=== PATIENT | female | born 1965 | race Caucasian/White ===

== ENCOUNTER → 2020-12-31 | Day surgery (SDC) | payer BC ==
--- NOTE | 2020-12-31 12:48 | RAD REPORT ---
EXAM DESCRIPTION: US - Guided FNA Non Breast - 12/31/2020 11:19 am CLINICAL HISTORY: Thyroid nodule ICD E04.1 TECHNIQUE: Risks, benefits and alternatives of procedure explained to the patient and informed conse nt obtained. The patient was anxious throughout the examination and had some difficulty in not taking deep respira tions and not swallowing during the examination. Skin and subcutaneous tissues anesthetized with lidocaine. Under sonographic guidance, five 25 gauge needle passes were obtained into the 16 millimeter spongifo rm nodule within the left lobe of the thyroid gland. Under sonographic guidance five 25 gauge needle passes were obtained into the dominant nodule within the right lobe of the thyroid gland which is mostly isoechoic. Specimens given to pathology. Patient experienced no immediate complication IMPRESSION: Fine-needle aspirations of a dominant nodule within the right and left lobes of the thyr oid gland
--- NOTE | 2021-01-01 10:23 | RAD REPORT ---
EXAM DESCRIPTION: US - FINE NEEDLE ASPIRATION 2ND LES - 12/31/2020 11:28 am CLINICAL HISTORY: Thyroid nodule ICD E04.1 TECHNIQUE: Risks, benefits and alternatives of procedure explained to the patient and informed conse nt obtained. The patient was anxious throughout the examination and had some difficulty in not taking deep respira tions and not swallowing during the examination. Skin and subcutaneous tissues anesthetized with lidocaine. Under sonographic guidance, five 25 gauge needle passes were obtained into the 16 millimeter spongifo rm nodule within the left lobe of the thyroid gland. Under sonographic guidance five 25 gauge needle passes were obtained into the dominant nodule within the right lobe of the thyroid gland which is mostly isoechoic. Specimens given to pathology. Patient experienced no immediate complication IMPRESSION: Fine-needle aspirations of a dominant nodule within the right and left lobes of the thyr oid gland
== END ==
LOC: FNA 10:00
PROVIDERS: ATTEND Nurse Practitioner Family
DX: E04.1 Nontoxic single thyroid nodule (principal)
CPT/HCPCS: 10006; 88162

== ENCOUNTER 2021-10-31 12:22 | Emergency (ER) | payer BC ==
--- OUTSIDE RECORDS SUMMARY | 2021-10-31 12:28 | XMS REPORT | Clinical Summary ---
:1965 Author Organization [facility] MD Gray [facility] Address [address] [place] [address] Care Team Providers Name Role Phone MD Jahaira Unavailable MD Tyra Primary Care Provider Allergies Active Allergy Reactions Severity Noted Date Comments Latex, Natural Rubber Shortness Of Breath High 05/17/2021 Sulfa (Sulfonamide Antibiotics) Rash Low Medications Medication Sig Dispensed Refills Start Date End Date Status cholecalciferol, Take 5,000 Units 0 Active vitamin D3, (VITAMIN by mouth daily. D3) 5,000 units tab tablet ascorbic acid, Take 1,000 mg by 0 Active vitamin C, (vitamin mouth daily. C) 1000 mg tablet omega-3 fatty Take by mouth 0 Ac tive acids/fish oil (fish daily. oil-omega-3 fatty acids) 300-1,000 mg capsule multivitamin tab Take by mouth 0 Active tablet daily. ZINC ORAL Take by mouth 0 Active daily. KRILL OIL ORAL Take by mouth 0 A ctive daily. lutein 20 mg tab Take by mouth 0 Active daily. glucosamine/chondr Take by mouth 0 Active high A sod (OSTEO daily. BI-FLEX ORAL) UNABLE TO FIND Take 1,200 mcg by 0 Active mouth daily. B12 liquid alendronate Take 1 tablet (70 12 tablet 4 05/18/2021 2 Active (FOSAMAX) 70 mg mg) by mouth every tabletIndications: 7 days. Take with Osteoporosis water on empty stomach in morning, stay upright at least 60 minutes before eating. polyethylene Okay to substitute 4000 mL 0 07/11/2021 Active glycol-electrolytes for Nulytley, (NULYTELY) 420 g Golytley, Colytley solutionIndications: or generic Colonoscopy planned equivalent.Use as directed by ordering provider. 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 06/27/2021 Overview: Added automatically from request for lena faust [id number] Neutropenia 05/18/2021 Multinodular goiter 05/16/2021 Osteoporosis 05/16/2021 Hyperparathyroidism 05/16/2021 Protein electrophoresis abnormal 05/16/2021 Encounters Date Type Specialty Care Team Description 07/21/2021 Anesthesia Event Endoscopy Floyd Diaz MD 07/21/2021 Surgery Endoscopy Kendrick Mary DIAGNOSTIC UP PER MD Jesse GASTROINTESTINA L ENDOSCOPY 07/21/2021 Hospital Encounter Endoscopy Kendrick Mary Chronic iron MD Jesse deficiency anem ia secondary to bl ood loss 07/21/2021 Travel 07/20/2021 Anesthesia Event Anesthesiology Chelly Uribe RN 07/20/2021 POEM Appointments Anesthesiology 07/20/2021 Clinical Support Infectious Diseases Agriam, Susp ected COVID-19 Nadine Chris RN (Primary Dx) 07/20/2021 Travel 07/11/2021 Orders Only Endoscopy Maryann March, Colonoscopy dorothy VASQUEZ (Primary Dx) 06/27/2021 Prep for Surgery Endoscopy Renita Bernard, Chronic i alicja WATER CHEMIST deficiency anem ia secondary to bl ood loss (Primary D x) 06/27/2021 Orders Only Hematology Jo, Chronic iron MD Duong deficiency anem ia secondary to bl ood loss (Primary D x) 06/27/2021 Telephone Hematology Duong Osorio MD 06/13/2021 Hospital Encounter Lab Jo Protein e lectrophoresis abnormal; MD Duong Neutropenia, no t otherwise specified 06/13/2021 Office Visit Hematology Jo Protein electro phoresis abnormal; MD Duong Neutropenia, no t otherwise specified 06/13/2021 Travel 05/26/2021 Ancillary Radiology Raven Mary, Cancer Procedure 05/26/2021 Ancillary Radiology Raven Mary, Cancer Procedure 05/26/2021 Ancillary Radiology Raven Mary, Cancer Procedure 05/26/2021 Ancillary Radiology Raven Mary, Cancer Procedure 05/20/2021 Lab Requisition Sid Mishra MD Witson, Anne S., MD 05/18/2021 Ancillary Radiology Peguero, Benign neoplasm of Procedure ABIGAIL Alonso thyroid gland 05/18/2021 Travel 05/17/2021 Ancillary Radiology Raven Mary, Cancer Procedure 05/17/2021 Ancillary Radiology Raven Mary, Cancer Procedure 05/17/2021 Ancillary Radiology Raven Mary, Cancer Procedure 05/17/2021 Hospital Encounter Lab Peguero, Benign ne oplasm of ABIGAIL lAonso thyroid gland 05/17/2021 Office Visit Endocrinology Raven Mary, Multinodular g oiter (Primary Dx); Hyperparathyroi dism, not otherwise specified; Osteoporosis; Protein electro phoresis abnormal; Hypercalciuria; Neutropenia, no t otherwise specified 05/17/2021 NPR Patient Access Raven Mary, Services 05/17/2021 Travel 05/12/2021 Orders Only Endocrinology Marielena, Benign neoplas m of ABIGAIL Alonso thyroid gland ( Primary Dx) after 10/31/2020 Surgical History Surgery Date Site/Laterality Comments COLONOSCOPY Fall 2013 Routine at age 3 0 +/- HERNIA REPAIR 2012 +/- [facility] HIP ARTHROPLASTY Left [facility] Triplett 2019, Mendez Right 2020 SINUS SURGERY ID ESOPHAGOGASTRODUODENOSCOPY 07/21/2021 Esophagus/N/A Pr ocedure: DIAGNOSTIC TRANSORAL DIAGNOSTIC UPPER GASTR OINTESTINAL ENDOSCOPY; Surg soila: Kendrick davies MD; Location: MAIN ENDOSCOPY; Serv ice: GASTROENTEROLOGY ID COLONOSCOPY FLX DX W/COLLJ SPEC 07/21/2021 N/A Procedure: DIAGNOSTIC WHEN PFRMD FLEXIBLE COLONOS COPY PROXIMAL TO SPLE MATTIE FLEXURE; Surgeo n: Kendrick davies MD; Location: MAIN ENDOSCOPY; Serv ice: GASTROENTEROLOGY Medical History Medical History Date Comments Fracture of pelvis Fatty liver 2016+/- [facility] Dr. Patty salinas - cleared Cleared by her Polyp of colon March 1999 +/- Nasal polyp surgery removal w/impacted sinuses Osteoporosis March 2021 Osteoporosis and Ost eopenia Arthritis March 2021 Showed up in x-rays Scoliosis 1973 +/- Was advised that it was minor curvature Basal cell carcinoma of skin Summer 2014 +/- [facility] - Mohs Surgery left side of head above/behind ear Asthma Family History Medical History Relation Name Comments Cancer Father Eddie Draper from Gallbl adder Cancer Relation Name Status Comments Father Eddie Draper Social History Tobacco Use Types Packs/Day Years Used Date Never Smoker 0 0 Smokeless Tobacco: Never Used Comments: Never touched it Alcohol Use Standard Drinks/Week Comments Yes 2 (1 standard drink = 0.6 oz pure alcoho l) Occasional Use Alcohol Habits Answer Date Recorded How often do you have a drink containing alcohol? Not asked How many drinks containing alcohol do you have on a Not aske d typical day when you are drinking? How often do you have six or more drinks on one Not asked occasion? Comment: Occasional Use 05/17/2021 Sex Assigned at Date Recorded Female 05/12/2021 7:35 PM CDT Job Start Date Occupation Industry Not on file Not on file Not on file Travel History Travel Start Travel End [place] 04/22/2021 04/29/2021 Obstetrics History Last Filed Vital Signs Vital Sign Reading Time Taken Comments Blood Pressure 117/71 07/21/2021 1:30 PM CDT Pulse 73 07/21/2021 1:30 PM CDT Temperature 36.6 C (97.9 F) 07/21/2021 11:50 AM CDT Respiratory Rate 15 07/21/2021 1:30 PM CDT Oxygen Saturation 99% 07/21/2021 1:30 PM CDT Inhaled Oxygen Concentration - - Weight 68 kg (149 lb 14.6 oz) 07/21/2021 11:50 AM CDT Height 172.8 cm (5' 8.03") 06/13/2021 7:46 AM CDT Body Mass Index 22.77 06/13/2021 7:46 AM CDT Plan of Treatment Date Type Specialty Care Team Description 11/18/2021 Lab Lab Jo Ann Robertson FNP [address] [place], [place] [address] (Wo rk) 11/18/2021 Ancillary Procedure Radiology Griffin Robertson FNP [address] [place], [place] [address] (Wo rk) 12/01/2021 Office Visit Endocrinology Raven Mary MD [address] [place], [place] [address] (Wo rk) Health Maintenance Due Date Last Done Comments COVID-19 Vaccination (1) 1968 Implants Implanted Type Area Supervisor Microwave Device Shelf Model / Identifier Expiration Serial / Date Lot Hip Replacement Metalware Bilatera l: Hip Procedures Procedure Name Priority Date/Time Associated Diagnosis Comme nts PATHOLOGY BIOPSY Routine 07/21/2021 12:32 Chronic iron Results for INTERPRETATION PM CDT deficiency anemia this pro cedure secondary to blood are in th e loss results section. ENDOSCOPY NOTE RESULTS 07/21/2021 12:13 R esults for PM CDT this procedure are in the results section. DIAGNOSTIC FLEXIBLE 07/21/2021 12:11 Chronic iron COLONOSCOPY PROXIMAL TO PM CDT deficiency anemia SPLENIC FLEXURE secondary to blood loss DIAGNOSTIC UPPER 07/21/2021 12:11 Chronic iron GASTROINTESTINAL PM CDT deficiency anemia ENDOSCOPY secondary to blood loss COVID-19 Routine 07/20/2021 10:12 Suspected COVID-19 Resul ts for (SARS-COV-2) PCR AM CDT this proced ure ASYMPTOMATIC are in the results section. HOMOCYSTEINE TOTAL STAT 06/13/2021 10:49 Resul ts for AM CDT this procedure are in the results section. .DR. KOHLI PROT ELEC PATH Routine 06/13/2021 10:07 Results for REVIEW AM CDT this procedure are in the results section. FREE KAPPA/FREE LAMBDA Routine 06/13/2021 10:07 R esults for RATIO AM CDT this procedure are in the results section. MANUAL DIFFERENTIAL Routine 06/13/2021 10:07 Protein Resu lts for AM CDT electrophoresis this procedu re abnormal are in the Neutropenia, not results otherwise specified section. Results CBC Routine 06/13/2021 10:07 Protein Results for AM CDT electrophoresis this procedu re abnormal are in the Neutropenia, not results otherwise specified section. FREE KAPPA LIGHT CHAIN Routine 06/13/2021 10:07 Protein R esults for AM CDT electrophoresis this procedu re abnormal are in the Neutropenia, not results otherwise specified section. PROTEIN Routine 06/13/2021 10:07 Protein Results for ELECTROPHORESIS, SERUM AM CDT electrophoresis th is procedure abnormal are in the Neutropenia, not results otherwise specified section. METHYLMALONIC ACID Routine 06/13/2021 10:07 Protein Resul ts for QUANTATIVE, SERUM AM CDT electrophoresis this pr ocedure abnormal are in the Neutropenia, not results otherwise specified section. ZINC LEVEL, SERUM Routine 06/13/2021 10:07 Protein Result s for AM CDT electrophoresis this procedu re abnormal are in the Neutropenia, not results otherwise specified section. COPPER LEVEL Routine 06/13/2021 10:07 Protein Results for AM CDT electrophoresis this procedu re abnormal are in the Neutropenia, not results otherwise specified section. VITAMIN B6 (PLP AND PA) Routine 06/13/2021 10:07 Protein Results for PROFILE AM CDT electrophoresis this procedu re abnormal are in the Neutropenia, not results otherwise specified section. COMPLETE BLOOD COUNT W/ Routine 06/13/2021 10:07 Protein DIFFERENTIAL AM CDT electrophoresis abnormal Neutropenia, not otherwise specified PERIPHERAL SMR FOR DOC Routine 06/13/2021 10:07 Protein R esults for REVIEW AM CDT electrophoresis this procedu re abnormal are in the Neutropenia, not results otherwise specified section. TRANSFERRIN Routine 06/13/2021 10:07 Protein Results for AM CDT electrophoresis this procedu re abnormal are in the Neutropenia, not results otherwise specified section. IRON LEVEL Routine 06/13/2021 10:07 Protein Results for AM CDT electrophoresis this procedu re abnormal are in the Neutropenia, not results otherwise specified section. FERRITIN LVL Routine 06/13/2021 10:07 Protein Results for AM CDT electrophoresis this procedu re abnormal are in the Neutropenia, not results otherwise specified section. IMMUNOGLOBULIN M SERUM Routine 06/13/2021 10:07 Protein R esults for AM CDT electrophoresis this procedu re abnormal are in the Neutropenia, not results otherwise specified section. IMMUNOGLOBULIN G SERUM Routine 06/13/2021 10:07 Protein R esults for AM CDT electrophoresis this procedu re abnormal are in the Neutropenia, not results otherwise specified section. IMMUNOGLOBULIN E SERUM Routine 06/13/2021 10:07 Protein R esults for AM CDT electrophoresis this procedu re abnormal are in the Neutropenia, not results otherwise specified section. IMMUNOGLOBULIN A SERUM Routine 06/13/2021 10:07 Protein R esults for AM CDT electrophoresis this procedu re abnormal are in the Neutropenia, not results otherwise specified section. FREE LAMBDA LIGHT CHAIN Routine 06/13/2021 10:07 Protein Results for AM CDT electrophoresis this procedu re abnormal are in the Neutropenia, not results otherwise specified section. US HEAD NECK SOFT Routine 05/18/2021 11:09 Benign neoplasm of Results for TISSUE AM CDT thyroid gland this procedure are in the results section. TMP HCVAB INTERP Routine 05/17/2021 10:17 Results for AM CDT this procedure are in the results section. HEPATITIS C VIRUS Routine 05/17/2021 10:17 Benign neoplasm of Results for ANTIBODY AM CDT thyroid gland this procedure are in the results section. FREE THYROXINE Routine 05/17/2021 10:17 Benign neoplasm of Res ults for AM CDT thyroid gland this procedure are in the results section. THYROID STIMULATING Routine 05/17/2021 10:17 Benign neoplasm o f Results for HORMONE AM CDT thyroid gland this procedure are in the results section. OSI THYROID SCAN Routine 05/02/2021 9:36 Cancer Results for AM CDT this procedure are in the results section. OSI US THYROID Routine 05/02/2021 9:36 Cancer Results f or AM CDT this procedure are in the results section. OSI BONE DENSITY STUDY Routine 03/11/2021 9:35 Cancer R esults for AM CDT this procedure are in the results section. OSI US THYROID Routine 12/31/2020 3:50 Cancer Results f or PM CDT this procedure are in the results section. PATHOLOGY OUTSIDE Routine 12/31/2020 Results fo r INTERPRETATION this procedur e are in the results section. OSI US THYROID Routine 12/03/2020 3:49 Cancer Results f or PM [address] this procedure are in the results section. OSI US VASCULAR Routine 11/26/2020 3:49 Cancer Results for PM [address] this procedure are in the results section. after 10/31/2020 Results Pathology Biopsy Interpretation (07/21/2021 12:32 PM CDT) Pathologist Sig nature Submitted Clinical Chronic iron deficiency [facility] History anemia secondary to blood loss [D50.0] Diagnosis A. Duodenum, biopsy: [facility] Electr onically signed Essentially unremarkable duodenal mucosa by Louie Parekh MD B. Stomach, random gastric biopsy: on 07/22/2021 at 10:29 Antral type mucosa with reactive gastropathy AM Oxyntic mucosa with mild chronic inactive gastritis No intestinal metaplasia or H. pylori (H&E stain) C. Gastroesophageal junction, biopsy: GE junction mucosa with mild chronic inflammation an d reactive changes No intestinal metaplasia D. Colon, sigmoid colon polyps x2, biopsy: One tubular adenoma and one hyperplastic polyp Gross Description A: [facility] Duodenum, duodenum: One pink soft tissue fragment, 0.3 cm, entirely submitted in A1. BM B: Stomach, random gastric: One pink red soft tissue fragment, 0.3 cm, entirely submitted in B1. BM C: Gastroesophageal junction, g astroesophageal junction: One parekh soft tissue fragment, 0.4 cm, entirely submitted in C1. BM D: Colon, sigmoid colon polyps x2: Two pink red soft tissue fragments, 0.2-0.3 cm, entirely submitted in D1. BM Disclaimer "Some tests reported [facility] here may have been developed and performance characteristics determined by [facility] Pathology and Laboratory Medicine. These tests have not been specifically cleared or approved by the U.S. Food and Drug Administration. If applicable, controls were reviewed and showed appropriate reactivity." Specimen Tissue - Duodenum Tissue - Stomach Tissue - Gastroesophageal Junction Tissue - Colon Performing Organization Address City/State/ZIP Code Phon e Number [facility] [place] [address] [address] ENDOSCOPY NOTE RESULTS (07/21/2021 12:13 PM CDT) Narrative This result has an attachment that is no t available. Procedure Note Kendrick Mary MD - 07/21/2021 12:13 PM CDT Patient Name: Maria D Kirkland Gender: Female Age: 56 Procedure Date No Time: 07/21/2021 Instrument Name: [id number] Proceduralist(s): KENDRICK WAGNER MD Procedure Name: Upper GI endos copy Scope In: 12:30:37 PM Scope Out: 12:36:07 PM Total Procedure Duration Time 0 hours 5 minutes 30 seconds Patient Profile: This is a 56 y ear old female. Indications: Iron deficienc y anemia Medications: Total IV Anest hesia (TIVA), CO2 Procedure Description: Pre-Anesthesia Assessment: - Prior to the procedure, a History and Physical was performed, and patient medications and allergies were reviewed. The patient's tolerance of previous anest hesia was also reviewed. The risks and benefits o f the procedure and the sedation options and ri sks were discussed with the patient. All questions were answered, and informed consent was obtained. Prior Anticoagulants: The patient has taken no antic oagulant or antiplatelet agents. ASA Grade Assessme nt: III - A patient with severe systemic disea se. After reviewing the risks and benefits, the patient was deemed in satisfactory condition to u ndergo the procedure. Informed conse nt was obtained. Throughout the procedure, the patient's blood pressure, pulse, and oxygen saturat ions were monitored continuously. The Olympus GIF-HQ 190 ([id number]) upper endoscope - (9.9 mm dm) was int roduced through the mouth, and advanced to th e second part of duodenum. The upper GI endoscopy w as accomplished without difficulty. The patient to lerated the procedure well. Findings: The upper thir d of the esophagus, middle third of the esophagus, lower third of the esophagus and gastroesophage al junction were normal. Esophagogastri c landmarks were identified: the Z-line was fou nd at 36 cm from the incisors. The Z-line was irregular and was found 36 cm from the incisors. Biopsies were taken with a cold forceps for hi stology. A small hiatal hernia was present. Diffuse mild i nflammation characterized by congestion (ed aileen), erosions and erythema was found in the gastric fundus, in the gastric body and in the gastric an trum. Biopsies were taken with a cold forceps for He licobacter pylori testing. The duodenal b ulb and second portion of the duodenum were normal. Biopsies for histology were taken with a c old forceps . Complications: No immediate c omplications. Estimated Blood Loss: Estimated bloo d loss: none. Post Procedure Diagnosis: - Normal upper third of esophagus, middle third of esophagus, low er third of esophagus and gastroesophage al junction. - Esophagogast cameron landmarks identified. - Z-line irreg ular, 36 cm from the incisors. Biopsied. - Small hiatal hernia. - Gastritis. B iopsied. - Normal duode nal bulb and second portion of the duodenum. Biop sied. Recommendation: - Discharge pa tient to home (with escort). - Resume previ ous diet. - Continue pre sent medications. - Await pathol ogy results. - Patient has a contact number available for emergencies. T he signs and symptoms of potential delayed compli cations were discussed with the patient. Retur n to normal activities tomorrow. Written discha rge instructions were provided to the patient. Attending Participation: I personally p erformed the entire procedure. KENDRICK MARY MD 07/21/2021 1:10:11 PM This report has been signed electronical ly. Number of Addenda: 0 COVID-19 (NATHANIEL-CoV-2) PCR Asymptomatic (07/20/2021 10:12 AM CDT) COVID19 SARS Inpatient Admission [facility] COVID19 SARS Result Not Detected Not Detected [facility] COVID19 SARS SARS-CoV-2 NOT Detected. [facility] Reference Range: Not Detected Methodology: The [employer]field Real Time SARS-CoV-2 assay is a qualitative real-time reverse lining vamper polymerase chain reaction (utilities and maintenance supervisor-PCR) test to detect RNA from SARS-CoV-2 in nasal, nasopharyngeal and oropharyngeal swabs from patients with signs and symptoms of infection who ar e suspected of COVID-19 by their health care provider. The [employer]field RealTime SARS-CoV-2 performed on the skillsbite.com000 System is a dual target assay with primers and probes for the RdRp and N genes. Results must be interpreted within the context of all relevant clinical and laboratory findings, and epidemiological risk factors. Positive results are indicative of the presence of SARS-CoV-2 RNA; clinical correlation with patient history and other diagnostic information is ne cessary to determine patient infection status. Positive results do not rule out bacterial infection or co-infection with other viruses. Negative results do not preclude SARS- CoV-2 infection and should not be used as the sole basis for patient management decisions. The [employer]field RealTime SARS-CoV -2 assay is for in vitro diagnostic use under FDA Emergency Use Authorization only. Testing is limited to laboratories certified under the Clinical Laboratory Improvement Amee ndments of 1988 (CLIA), 42U.S.C. 263a, to perform high complexity tests. The T est was performed by the CLIA-certified, high- complexity Molecular Diagnostics Laboratory (MDL) at [facility] under the Food and Drug Administration (FDA) s Emergency Use Authorization. Factsheet for patients: https://www.[facility].org/Abb ottFactSheetPatients Factsheet for healthcare pro viders: https://www.[facility].org/AbbottFactSheetHCP Test performed by: [facility] Stein [facility] [address] [place] [address] Specimen Nasopharyngeal Swab Performing Organization Address City/[facility] Phon e Number [facility] Unless otherwise noted, [address] all lab tests performed by: Division of Pathology and Laboratory Medicine [facility] Homocysteine Total (06/13/2021 10:49 AM CDT) Pathologist Sig nature Homocysteine 8.0 <=15.0 mcmol/L [facility] ER Specimen Blood Performing Organization Address [facility] Phon e Number [facility] Unless otherwise noted, [address] all lab tests performed by: Division of Pathology and Laboratory Medicine [facility] Ayse Nehemias Protein Electrophoresis Path Review (06/13/2021 10:07 AM CDT) SPE Path Interp The serum protein electropho retic pattern does not show definite evidence of an [facility] M-protein peak. If a parapro teinemia is suspected clinically, however, serum free light chain studies, serum protein PEARL studies, serum immunoglobulin quantitation and urine Bence-Venegas protein studies are recommended. [facility]ENTER Comment: HUBERT KOHLI MD, PhD - [id number] Dictated by: HUBERT KOHLI MD, PhD - [id number] Dictated Date/Time: 06.13.20 15:35 PM CDT Transcribed Date/Time: 06.13.2021 15:35 PM CDT Electronically Signed By: SHERRY KOHLI MD, PhD - [id number] on 06.13.2021 15:35 PM Specimen Blood Performing Organization Address [facility] Phon e Number [facility] Unless otherwise noted, [address] all lab tests performed by: Division of Pathology and Laboratory Medicine Lawson Del Cid (ABNORMAL) .CBC (06/13/2021 10:07 AM CDT) Pathologist [facility] mago WBC 3.6 (L) 4.0 - 11.0 K/uL [facility] RBC 4.09 4.00 - 5.50 [facility] M/uL Hgb 13.2Comment: As part 12.0 - 16.0 [facility] of CBC or as an gm/dL individual orderable testing performed at [facility], [address] [place] [address], [address], [place] [address] Hct 42.1Comment: As part 37.0 - 47.0 % [facility] of CBC or as an individual orderable testing performed at [facility], [address] [place] [address], [address], [place] [address] MCV 103 (H) 82 - 98 fL [facility] MCH 32.3 (H) 27.0 - 31.0 pg [facility] MCHC 31.4 31.0 - 36.0 [facility] gm/dL RDW-SD 46.1 35.1 - 46.3 fL [facility] RDW-CV 12.1 12.0 - 15.5 % [facility] Platelet count 258Comment: As part 140 - 440 K/uL [facility] of CBC or as an individual orderable testing performed at [facility], [facility], [address], [place] [address] MPV 9.9 4.0 - 10.4 fL [facility] INRBC 0.0 <=0.0 % [facility] Comment: The INRBC (instrument NRBC) value reflects the enumera tion of nucleated red blood cells contained in a 200uL samp le of whole blood analyzed by the instrument. This value may differ from the NRBC value reported in a manual differ ential, which is based on a 100 cell differential. As part of CBC testing performed at [address], [address], [place] [address] Specimen Blood Performing Organization Address City/State/ZIP Code Phon e Number [address] [place] [address] [address] Free [place]/Free Lambda Ratio (06/13/2021 10:07 AM CDT) Pathologist Sig nature FKap/FLam RT 0.93 0.26 - 1.65 [facility] Specimen Blood Performing Organization Address City/[facility]/ZIP Code Phon e Number [facility] CANCER Unless otherwise noted, [address] all lab tests performed by: Division of Pathology and Laboratory Medicine [facility]5 [facility] Peripheral Smr For Doc Review (06/13/2021 10:07 AM CDT) Pathologist Sig nature Peripheral Smear [facility] Specimen Blood Performing Organization Address City/[facility]/ZIP Code Phon e Number [facility] [address] [place] [address] [address] Free Lambda Light Chain (06/13/2021 10:07 AM CDT) Pathologist Sig nature Free Lambda 11.54 5.71 - 26.30 mg/L [facility] Specimen Blood Performing Organization Address City/[facility]/ZIP Code Phon e Number [facility] Unless otherwise noted, [address] all lab tests performed by: Division of Pathology and Laboratory Medicine [facility]5 [facility] Free [place] Light Chain (06/13/2021 10:07 AM CDT) Pathologist Sig nature Free [place] 10.78 3.30 - 19.40 mg/L [facility]TER Specimen Blood Performing Organization Address [facility] Phon e Number [facility] Unless otherwise noted, [address] all lab tests performed by: Division of Pathology and Laboratory Medicine [address] [place] [address] Methylmalonic Acid Quant, Serum (06/13/2021 10:07 AM CDT) MMA Quant-[place] 0.09 <=0.40 [facility] Comment: nmol/mL [facility] ADDITIONAL INFORMATION ------ This test was developed and its performance characteri stics determined by [facility] in a manner consistent with CLIA requirements. This test has not been cleared or approv ed by the U.S. Food and Drug Administration. Test Performed by: [facility] Laboratories - [address] [address] Civil Preparedness Coordinator: Nick Arzola M.D. Ph.D.; CLIA# [id number] Specimen Blood Performing Organization Address [facility] e Number [facility] Unless otherwise noted, [address] all lab tests performed by: Division of Pathology and Laboratory Medicine [address] (ABNORMAL) Copper Level (06/13/2021 10:07 AM CDT) Copper [facility] 1.53 (H) 0.75 - 1.45 [facility] Comment: [facility] ADDITIONAL INFORMATION ------ This test was developed and its performance characteri stics determined by [facility] in a manner consistent with CLIA requirements. This test has not been cleared or approv ed by the U.S. Food and Drug Administration. Test Performed by: [facility] [place] [address] Civil Preparedness Coordinator: Nick Arzola M.D. Ph.D.; CLIA# [id number] Specimen Blood Performing Organization Address [facility] e Number [facility] Unless otherwise noted, [address] all lab tests performed by: Division of Pathology and Laboratory Medicine [address] Zinc Level (06/13/2021 10:07 AM CDT) Pathologist [facility] Zinc [facility] 1.09 0.66 - 1.10 [facility] Comment: [facility] ADDITIONAL INFORMATION ------ This test was developed and its performance characteri stics determined by [facility] in a manner consistent with CLIA requirements. This test has not been cleared or approv ed by the U.S. Food and Drug Administration. Test Performed by: [facility] [place] [address] Civil Preparedness Coordinator: Nick Arzola M.D. Ph.D.; CLIA# [id number] Specimen Blood Performing Organization Address [facility]/ZIP Code Phon e Number [facility] Unless otherwise noted, [address] all lab tests performed by: Division of Pathology and Laboratory Medicine [facility] (ABNORMAL) Differential (06/13/2021 10:07 AM CDT) Neutrophil % 50.9Comment: As part 42.0 - 66.0 % [facility] of Differential performed at [facility], [address] [place] [address], [address], [place] [id number] Lymphocyte % 35.6 24.0 - 44.0 % [facility] Monocyte % 8.8 (H) 2.0 - 7.0 % [facility] Eosinophil % 3.6 1.0 - 4.0 % [facility] Basophil % 0.8 0.0 - 1.0 % [facility] IGRE % 0.3 0.0 - 0.4 % [facility] Comment: IGRE % count includes Metamyelocytes, Myelocytes, and Promyelocytes. As part of Differential perf ormed at [facility], [facility], [address], [place] [id number] Neutrophil Abs 1.84 1.70 - 7.30 [facility] K/uL Lymphocyte Abs 1.29 1.00 - 4.80 [facility] K/uL Monocyte Abs 0.32 0.08 - 0.70 [facility] K/uL Eosinophil Abs 0.13 0.04 - 0.40 [facility] K/uL Basophil Abs 0.03 0.00 - 0.10 [facility] K/uL IG Abs 0.01 0.00 - 0.04 [facility] K/uL Specimen Blood Performing Organization Address City/State/ZIP Code Phon e Number [facility] [address] [facility] [place] [address] [address] (ABNORMAL) Transferrin with TIBC (06/13/2021 10:07 AM CDT) Pathologist Sig nature Transferrin 359 200 - 360 mg/dL [facility] TIBC 503 (H) 250 - 450 mcg/dL [facility] Specimen Blood Performing Organization Address City/State/ZIP Code Phon e Number [facility] Unless otherwise noted, [address] all lab tests performed by: Division of Pathology and Laboratory Medicine [facility] Vitamin B6 Level (06/13/2021 10:07 AM CDT) PALP-Lindquist 16 5 - 50 mcg/L [facility] Comment: [facility] ADDITIONAL INFORMATION ------ This test was developed and its performance characteri stics determined by [facility] in a manner consistent with CLIA requirements. This test has not been cleared or approv ed by the U.S. Food and Drug Administration. Pyridoxic Acid 12 3 - 30 mcg/L [facility] (AR)[facility] Comment: [facility] ADDITIONAL INFORMATION ------ This test was developed and its performance characteri stics determined by [facility] in a manner consistent with CLIA requirements. This test has not been cleared or approv ed by the U.S. Food and Drug Administration. Test Performed by: [facility] [address] [place] [address] Civil Preparedness Coordinator: Nick Arzola M.D. Ph.D.; CLIA# [id number] Specimen Blood Performing Organization Address City/[facility] e Number [facility] Unless otherwise noted, [address] all lab tests performed by: Division of Pathology and Laboratory Medicine [facility] Protein Electrophoresis (06/13/2021 10:07 AM CDT) Pathologist Sig nature TOT PROTEIN 7.0 6.4 - 8.3 gm/dL [facility] Albumin 4.6 3.6 - 5.4 gm/dL [facility] Alpha 1 Globulin 0.3 0.2 - 0.4 gm/dL [facility] Alpha 2 Globulin 0.7 0.5 - 1.0 gm/dL [facility] Beta Globulin 0.8 0.5 - 1.1 gm/dL [facility] Gamma Globulin 0.7 0.7 - 1.6 gm/dL [facility] Specimen Blood Performing Organization Address City/State/ZIP [facility] e Number [facility] Unless otherwise noted, [address] all lab tests performed by: Division of Pathology and Laboratory Medicine [address] Iron Level (06/13/2021 10:07 AM CDT) Pathologist Sig nature Iron 74 37 - 145 mcg/dL [facility] [address] Specimen Blood Performing Organization Address City/State/ZIP Code Phon e Number [facility] Unless otherwise noted, [address] all lab tests performed by: Division of Pathology and Laboratory Medicine [address] IgE (06/13/2021 10:07 AM CDT) Pathologist Sig nature IgE 53.3 <=200.0 IU/mL [facility] R Specimen Blood Performing Organization Address City/[facility]/ZIP [facility] Phon e Number [facility] Unless otherwise noted, [address] all lab tests performed by: Division of Pathology and Laboratory Medicine [address] IgA (06/13/2021 10:07 AM CDT) Pathologist Sig nature IgA 107 85 - 499 mg/dL [facility] ER Specimen Blood Performing Organization Address City/[facility]/ZIP Code Phon e Number [facility] Unless otherwise noted, [address] all lab tests performed by: Division of Pathology and Laboratory Medicine [address] IgM (06/13/2021 10:07 AM CDT) Pathologist Sig nature IgM 95 35 - 242 mg/dL [facility] ER Specimen Blood Performing Organization Address City/[facility]/ZIP Code Phon e Number [facility] Unless otherwise noted, [address] all lab tests performed by: Division of Pathology and Laboratory Medicine [address] IgG (06/13/2021 10:07 AM CDT) Pathologist Sig nature IgG 632 610 - 1,616 mg/dL [facility] C ENTER Specimen Blood Performing Organization Address City/[facility]/ZIP Code Phon e Number [facility] Unless otherwise noted, [address] all lab tests performed by: Division of Pathology and Laboratory Medicine [address] Ferritin Level (06/13/2021 10:07 AM CDT) Pathologist Sig nature Ferritin Lvl 17 13 - 150 ng/mL [facility] Specimen Blood Performing Organization Address City/State/ZIP Code Phon e Number [facility] Unless otherwise noted, [place] [address] CENTER all lab tests performed by: Division of Pathology and Laboratory Medicine [address] [facility] US HEAD NECK SOFT TISSUE (05/18/2021 11:09 AM CDT) Specimen Impressions [id number] - 05/18/2021 11:12 AM CDT 1. Multinodular thyroid. 2. No adenopathy Narrative [id number] - 05/18/2021 11:12 AM CDT FULL RESULT: Ultrasound soft tissue neck and thyroid, 05/18/2021 Clinical history: Multinodular thyroid s tatus post fine needle aspiration at an outside institution of right and left thyroid nodules, both interpreted on the outside as follicular cells and colloid, favor benign Indication: Baseline Jelani Francisco evalu ation Comparison: Outside ultrasound examinati on 05/02/2021 Technique: Ultrasound examination soft t issue neck and thyroid Findings: The right lobe measures approx imately 6.3 x 2.6 x 2 cm. Multiple nodules are present in the right lobe appearing relatively stable. The largest nodule is present in the inferior pole measuring 1.7 x 1.6 x 1.5 cm, previously measures 1.8 x 1.6 x 1.4 cm. There is minimal vascular flow and a small calcification with posterior shadowing. The left lobe measures approximately 6.5 x 2.2 x 2 point cm. In the left midpole is a spongiform 1.8 x 1.2 x 0.6 cm nodule that previously measured 1.8 x 1.2 x 1 cm. Minimal vascular flow is noted witho ut calcification. Other subcentimeter no dules do not have a worrisome appearance. No worrisome delphian or suprasternal no yajaira are present. There is no suspicious anterior jugular territory adenopathy. Procedure Note Elmer Marie MD - 05/18/2021 FULL RESULT: Ultrasound soft tissue neck and thyroid, 05/18/2021 Clinical history: Multinodular thyroid s tatus post fine needle aspiration at an outside institution of right and left thyroid nodules, both interpreted on the outside as follicular cells and colloid, favor benign Indication: Baseline Jelani Francisco evalu ation Comparison: Outside ultrasound examinati on 05/02/2021 Technique: Ultrasound examination soft t issue neck and thyroid Findings: The right lobe measures approx imately 6.3 x 2.6 x 2 cm. Multiple nodules are present in the right lobe appearing relatively stable. The largest nodule is present in the inferior pole measuring 1.7 x 1.6 x 1.5 cm, previously measures 1.8 x 1.6 x 1.4 cm. There is minimal vascular flow and a small calcification with posterior shadowing. The left lobe measures approximately 6.5 x 2.2 x 2 point cm. In the left midpole is a spongiform 1.8 x 1.2 x 0.6 cm nodule that previously measured 1.8 x 1.2 x 1 cm. Minimal vascular flow is noted without calcification. Other subcentimeter nodules do not have a worrisome appearance. No worrisome delphian or suprasternal no yajaira are present. There is no suspicious anterior jugular territory adenopathy. IMPRESSION: 1. Multinodular thyroid. 2. No adenopathy Performing Organization Address City/State/ZIP Code Phon e Number [id number] TMP HCV Ab Path Interp (05/17/2021 10:17 AM CDT) HCV Ab Path There is NO serologic evidence of Hepatitis C vi jovan antibody. [facility] Interp Comment: CENTER BJORN HODGES, Dictated by: BJORN HODGES, Dictated Date/Time: 05.19.20 6:59 AM CDT Transcribed Date/Time: 05.19.2021 6:59 AM CDT Electronically Signed By: BJORN HODGES, on 0 05.19.2021 6:59 AM C Specimen Blood Performing Organization Address City/State/ZIP Code Phon e Number [facility] [address] [place] [address] Hepatitis C Virus Ab (05/17/2021 10:17 AM CDT) HCVAb. Non Reactive Non Reactive [facility] Comment: CENTER Antibody detection in the im munocompromised and immunosuppressed population may be delayed or absent entirely. Therefore serial testing, correlation with other clinical findings, and supplemental testin g (if available) should be taken into consideration when interpreting the results. Performed at: [facility] [address] [place] [address] Specimen Blood Performing Organization Address City/State/ZIP Code Phon e Number [facility] [address] [place] [address] TSH (05/17/2021 10:17 AM CDT) Pathologist Sig nature TSH 1.25 0.27 - 4.20 mcunit/mL [facility] Specimen Blood Performing Organization Address City/[facility]/ZIP Code Phon e Number [facility] Unless otherwise noted, [place] [phone] [place] all lab tests performed by: Division of Pathology and Laboratory Medicine [address] [facility] Free T4 (05/17/2021 10:17 AM CDT) Pathologist Sig nature T4 Free 1.10 0.93 - 1.70 ng/dL [facility] Specimen Blood Performing Organization Address City/[facility] Phon e Number [facility] Unless otherwise noted, [place] [phone] [place] all lab tests performed by: Division of Pathology and Laboratory Medicine [address] OSI US Thyroid (05/02/2021 9:36 AM CDT)Only the most recent of3 resultswithin the time period is included. Specimen Narrative Systemgenerated, Documentation - 9:36 AM CDT Study acquired at another institution. For comparison only. No [facility] originated interpretation requested or a vailable. OSI Thyroid Scan (05/02/2021 9:36 AM CDT) Specimen Narrative Systemgenerated, Documentation - 021 9:36 AM CDT Study acquired at another institution. For comparison only. No [facility] originated interpretation requested or a vailable. OSI Bone Density Study (03/11/2021 9:35 AM CDT) Specimen Narrative Systemgenerated, Documentation - 021 9:36 AM CDT Study acquired at another institution. For comparison only. No [facility] originated interpretation requested or a vailable. Pathology Outside Interpretation (12/31/2020) Pathologist Sig nature Materials Received Accession#, Stained, Block, Unstained Collect ed Received [facility] A. 21:FN6, 26 SS, 2 BLOCKS, 0 USS 12/31/2020 05/20/2021 Diagnosis [facility] Electronically signed Received twenty six slides (21:FN6; 12/31/2020) eulalio gomes: by Caroline Le MD on 05/23 A) Thyroid, right, fine needle aspiration: at 2:49 PM Colloid nodule B) Thyroid, left, fine needle aspiration: Colloid nodule Disclaimer "Some tests reported [facility] here may have been developed and performance characteristics determined by [facility] Pathology and Laboratory Medicine. These tests have not been specifically cleared or approved by the U.S. Food and Drug Administration. If applicable, controls were reviewed and showed appropriate reactivity." Specimen Tissue Performing Organization Address City/State/[place] [address] [address] OSI US Vascular (11/26/2020 3:[address]) Specimen Narrative Systemgenerated, Documentation - 021 3:49 PM CDT Study acquired at another institution. For comparison only. No [facility] originated interpretation requested or a vailable. after 10/31/2020 Insurance Payer Benefit Plan / Subscriber ID Effective Dates Phone Addre ss Type Group [employer] PPO POS [id number] 2019-Present [id number] [place] [address] Care Teams Soft Crab Shedder Relationship Specialty Start Date End Date Connie Campo MD PCP - External Referring Endocrinology 05/06/[address] [place] [address] [id number] Raven Mary MD PCP - General Endocrinology 05/06/21 [facility] [place], [place] [id number]
--- OUTSIDE RECORDS SUMMARY | 2021-10-31 12:32 | XMS REPORT | Continuity of Care Document ---
:1965 Author Organization [facility] t Address [address] [place] [address] Dr. Hinson [address] [place] [id number] Care Team Providers Name Role Phone [phone] Primary Care Physician Unavailable SYSTEM, NOT IN Attending Clinician Unavailable Andrea Attending Clinician Unavailable Dawson Marcano Attending Clinician Unavailable NIA Attending Clinician Unavailable MD KWAME KRAMER Attending Clinician Unavailable JESSE MARY Attending Clinician Unavailable Jesse Mary MD Attending Clinician Joe CRUZ Attending Clinician Rony MARTIN Attending Clinician Unavailable Aries Pak RN Attending Clinician Unavailable Aries PAK Attending Clinician Unavailable Joaquim VASQUEZ Attending Clinician Marco Antonio ACCOUNTS PAYABLE MANAGER Attending Clinician Lila CRUZ Attending Clinician LILA Attending Clinician Unavailable Mary Jane CRUZ Attending Clinician MARY JANE Attending Clinician Unavailable Delia Mishra MD Attending Clinician Olive CRUZ, S. Attending Clinician Marielena ACCOUNTS PAYABLE MANAGER Attending Clinician MARIELENA Attending Clinician Unavailable Kinjal Attending Clinician Unavailable Wilfrid Gore MD Attending Clinician Wilfrid GORE Attending Clinician Unavailable Severo CRUZ Attending Clinician Roya Howard MD Attending Clinician Pcp-Lab Attending Clinician Unavailable ROYA HOWARD Attending Clinician Unavailable Bradly Roman DO Attending Clinician Michele CRUZ Attending Clinician MICHELE Attending Clinician Unavailable ROSIE Attending Clinician Unavailable Rosie VASQUEZ Attending Clinician Andrea Admitting Clinician Unavailable ELADIO Admitting Clinician Unavailable NIA Admitting Clinician Unavailable MD KWAME KRAMER Admitting Clinician Unavailable JESSE MARY Admitting Clinician Unavailable Physician, Primary or Family Admitting Clinician Unavailabl e Payers Payer Name Policy Type Policy Number Effective Date Expiration Date S tiffani [place] POS [id number] 2019 00:00:00 Problems Condition Condition Condition Status Onset Resolution Last Treating Co mments Source Name Details Category Date Date Treatment Clinician Date Chronic Chronic Disease Active Overview: 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 An derso resis resis 00:00: n abnormal abnormal 00 Fatty Fatty Disease Active 2018-10 [facility] liver liver 0-11 ity of 00:00: [place] 00 Medical Branch Allergies, Adverse Reactions, Alerts Allergy Allergy Status Severity Reaction(s) Onset Inactive Treating Comm ents Source Name Type Date Date Clinician Latex Propensi Active Shortness of If around Univers ty to Breath 01-13 the face, ity of adverse 00:00: she gets [place] reaction 00 SOB, Medical s Asthma Branch LATEX DRUG Active SOB Univers INGREDI 4- ity of 00:00: [place] 00 Medical Branch Sulfa DA Active SV [facility] (Sulfona 2-23 [place] mide 00:00: Orthope Antibiot 00 dic ics) [facility]osp[facility] latex DA Active SV 2020- [facility] 2- [place] 00:00: Orthope 00 dic Hospita l Sulfa DA Active SV ITCHING 2020- [facility] (Sulfona 2- [place] mide 00:00: Orthope Antibiot 00 dic ics) Hospita l latex DA Active SV ASTHMA [facility] ATTACK 2- [place] 00:00: Orthope 00 dic Hospita l Sulfa DA Active SV 2019- [facility] (Sulfona 2-16 Clear mide 00:00: Rod Antibiot 00 [facility] latex DA Active SV 2019- [facility] 2-16 Clear 00:00: Rod 00 [facility] Sulfa DA Active SV ITCHING 2019- [facility] (Sulfona 2-16 Clear mide 00:00: Rod Antibiot 00 Regiona ics) [facility] latex DA Active SV ASTHMA 2019- [facility] ATTACK 2-16 Clear 00:00: Rod 00 [facility] Sulfa DA Active U 2020-0 [facility] (Sulfona 9-30 [place] mide 00:00: Orthope Antibiot 00 dic ics) Hospita l Sulfa DA Active U ITCHING 2019- [facility] (Sulfona 9-30 [place] mide 00:00: Orthope Antibiot 00 dic ics) Hospita l SULFA Drug Active Rash 2013- Univers (SULFONA Class 7-09 ity of MIDE 00:00: [place] ANTIBIOT 00 Medical ICS) Branch Sulfa Propensi Active Rash 2013- Univers (Sulfona ty to 7-09 ity of mide adverse 00:00: [place] Antibiot reaction 00 Medica l ics) s Branch Family History Family Member Diagnosis Comments Start Date Stop Date Source Natural father Cancer MD Rodrigo davies Social History Social Habit Start Date Stop Date Quantity Comments Source Exposure to Not sure [facility] SARS-CoV-2 [place] Medical (event) Branch History ABRILDC MD [place] Alcohol Frequency History ABRILDC MD [place] Alcohol Std Drinks History REENA [place] Alcohol Binge Alcohol intake 2021-07-26 2021-07-26 Current drinker MD Destiny urena 00:00:00 00:00:00 of alcohol (finding) Tobacco use and 2021-05-17 2021-05-17 Smokeless tobacco MD [place] exposure 00:00:00 00:00:00 non-user History SDOH 2021-05-17 2021-05-17 Occasional Use MD Gray son Alcohol Comment 00:00:00 00:00:00 Tobacco Comment 2021-05-17 2021-05-17 Never touched it MD [place] 00:00:00 00:00:00 [birth year] Univers[facility] 00:00:00 00:00:00 [facility] Smoking Status Start Date Stop Date Source Never smoker [facility] Medications Ordered Filled Start Stop Current Ordering Indication Dosage Frequency Signature Comments Components Source Medication Medication Date Date Medication? Clinician (SIG) Name Name cholecalcif 2020-10 Yes 5000U Take 5,000 MD shon, 0-07 Units by Anderso vitamin D3, 14:10: mouth n (VITAMIN 40 daily. D3) 5,000 units tab tablet ascorbic 2020-10 Yes 1000mg Take 1,000 M D acid, 0-07 mg by Anderso vitamin C, 14:10: mouth n (vitamin C) 40 daily. 1000 mg tablet omega-3 2020-10 Yes Take by fatty 0-07 mouth [place] acids/fish 14:10: daily. n oil (fish 40 oil-omega-3 fatty acids) 300-1,000 mg capsule multivitami 2020-10 Yes Take by n tab 0-07 mouth [place] tablet 14:10: daily. n 40 ZINC ORAL 2020-10 Yes Take by 0-07 mouth [place] 14:10: daily. n 40 KRILL OIL 2020-10 Yes Take by ORAL 0-07 mouth [place] 14:10: daily. n 40 lutein 20 2020-10 Yes Take by mg tab 0-07 mouth [place] 14:10: daily. n 40 glucosamine 2020-10 Yes Take by /amber high 0-07 mouth [place] A sod 14:10: daily. n (OSTEO 40 BI-FLEX ORAL) UNABLE TO 2020-10 Yes 1200ug Take 1,200 MD FIND 0-07 mcg by Anderso 14:10: mouth n 40 daily. B12 liquid polyethylen Yes Colonoscopy Okay to MD castellano 07-11 planned substitute Jurgen o glycol-elec 00:00: for n trolytes 00 Nulytley, (NULYTELY) Golytley, 420 g Colytley solution or generic equivalent .Use as directed by ordering provider. alendronate 2- No Osteoporosi 70mg Take 1 MD (FOSAMAX) 05-18 08-05 s tablet (70 And erso 70 mg 00:00: 04:59 mg) by n tablet 00 :00 mouth every 7 days. Take with water on empty stomach in morning, stay upright at least 60 minutes before eating. meloxicam Yes 15mg Take 15 mg Un buzz 15 mg 4-01 by mouth ity of tablet 15:30: once daily [place] 34 as needed Medical for Pain. Branch methocarbam Yes 1{tbl} Take 1 Un buzz ol 4-01 tablet by ity of (ROBAXIN-75 15:30: [place] ORAL[place] 34 needed for Medica l Pain Branch (scale 4-6) (She takes it once daily as needed). aspirin Yes 81mg Take 81 mg Univ ers (ADULT LOW 4-01 by mouth ity o f DOSE 15:30: daily. [place] ASPIRIN) 81 34 Medical mg EC Branch tablet meloxicam Yes 15mg Take 15 mg Un buzz 15 mg 4-01 by mouth ity of tablet 15:30: once daily [place] 34 as needed Medical for Pain. Branch methocarbam Yes 1{tbl} Take 1 Un buzz ol 4-01 tablet by ity of (ROBAXIN-75 15:30: [place] ORAL) 34 needed for Medica l Pain Branch (scale 4-6) (She takes it once daily as needed). aspirin Yes 81mg Take 81 mg Univ ers (ADULT LOW 4-01 by mouth ity o f DOSE 15:30: daily. [place] ASPIRIN) 81 34 Medical mg EC Branch tablet meloxicam 0 Yes 15mg Take 15 mg Un buzz 15 mg 4-01 by mouth ity of tablet 15:30: once daily [place] 34 as needed Medical for Pain. Branch methocarbam Yes 1{tbl} Take 1 Un buzz ol 4-01 tablet by ity of (ROBAXIN-75 15:30: [place] ORAL) 34 needed for Medica l Pain Branch (scale 4-6) (She takes it once daily as needed). aspirin 2021-0 Yes 81mg Take 81 mg Univ ers (ADULT LOW 4-01 by mouth ity o f DOSE 15:30: daily. [place] ASPIRIN) 81 34 Medical mg EC Branch tablet meloxicam 2020-0 Yes 15mg Take 15 mg Un buzz 15 mg 4-01 by mouth ity of tablet 15:30: once daily [place] 34 as needed Medical for Pain. Branch methocarbam 202-0 Yes 1{tbl} Take 1 Un buzz ol 4-01 tablet by ity of (ROBAXIN-75 15:30: [place] 0 ORAL) 34 needed for Medica l Pain Branch (scale 4-6) (She takes it once daily as needed). aspirin 202-0 Yes 81mg Take 81 mg Univ ers (ADULT LOW 4-01 by mouth ity o f DOSE 15:30: daily. [place] ASPIRIN) 81 34 Medical mg EC Branch tablet meloxicam 2020-0 Yes 15mg Take 15 mg Un buzz 15 mg 4-01 by mouth ity of tablet 15:30: once daily [place] 34 as needed Medical for Pain. Branch methocarbam 202-0 Yes 1{tbl} Take 1 Un buzz ol 4-01 tablet by ity of (ROBAXIN-75 15:30: [place] 0 ORAL) 34 needed for Medica l Pain Branch (scale 4-6) (She takes it once daily as needed). aspirin 202-0 Yes 81mg Take 81 mg Univ ers (ADULT LOW 4-01 by mouth ity o f DOSE 15:30: daily. [place] ASPIRIN) 81 34 Medical mg EC Branch tablet meloxicam 2020-0 Yes 15mg Take 15 mg Un buzz 15 mg 4-01 by mouth ity of tablet 15:30: once daily [place] 34 as needed Medical for Pain. Branch methocarbam 2021-0 Yes 1{tbl} Take 1 Un buzz ol 4-01 tablet by ity of (ROBAXIN-75 15:30: [place] 0 ORAL) 34 needed for Medica l Pain Branch (scale 4-6) (She takes it once daily as needed). aspirin 2021-0 Yes 81mg Take 81 mg Univ ers (ADULT LOW 4-01 by mouth ity o f DOSE 15:30: daily. [place] ASPIRIN) 81 34 Medical mg EC Branch tablet meloxicam 2020-0 Yes 15mg Take 15 mg Un buzz 15 mg 4-01 by mouth ity of tablet 15:30: once daily [place] 34 as needed Medical for Pain. Branch methocarbam 202-0 Yes 1{tbl} Take 1 Un buzz ol 4-01 tablet by ity of (ROBAXIN-75 15:30: mouth [place] 0 ORAL) 34 needed for Medica l Pain Branch (scale 4-6) (She takes it once daily as needed). aspirin 2020-0 Yes 81mg Take 81 mg Univ ers (ADULT LOW 4-01 by mouth ity o f DOSE 15:30: daily. [place] ASPIRIN) 81 34 Medical mg EC Branch tablet meloxicam 2020-0 Yes 15mg Take 15 mg Un buzz 15 mg 4-01 by mouth ity of tablet 15:30: once daily [place] 34 as needed Medical for Pain. Branch methocarbam 2020-0 Yes 1{tbl} Take 1 Un buzz ol 4-01 tablet by ity of (ROBAXIN-75 15:30: mouth [place] 0 ORAL) 34 needed for Medica l Pain Branch (scale 4-6) (She takes it once daily as needed). aspirin 2020-0 Yes 81mg Take 81 mg Univ ers (ADULT LOW 4-01 by mouth ity o f DOSE 15:30: daily. [place] ASPIRIN) 81 34 Medical mg EC Branch tablet meloxicam 2020-0 Yes 15mg Take 15 mg Un buzz 15 mg 4-01 by mouth ity of tablet 15:30: once daily [place] 34 as needed Medical for Pain. Branch methocarbam 202-0 Yes 1{tbl} Take 1 Un buzz ol 4-01 tablet by ity of (ROBAXIN-75 15:30: mouth [place] 0 ORAL) 34 needed for Medica l Pain Branch (scale 4-6) (She takes it once daily as needed). aspirin 2021-0 Yes 81mg Take 81 mg Univ ers (ADULT LOW 4-01 by mouth ity o f DOSE 15:30: daily. [place] ASPIRIN) 81 34 Medical mg EC Branch tablet meloxicam 2020-0 Yes 15mg Take 15 mg Un buzz 15 mg 4-01 by mouth ity of tablet 15:30: once daily [place] 34 as needed Medical for Pain. Branch methocarbam 0 Yes 1{tbl} Take 1 Un buzz ol 4-01 tablet by ity of (ROBAXIN-75 15:30: mouth [place] 0 ORAL) 34 needed for Medica l Pain Branch (scale 4-6) (She takes it once daily as needed). aspirin 2020-0 Yes 81mg Take 81 mg Univ ers (ADULT LOW 4-01 by mouth ity o f DOSE 15:30: daily. [place] ASPIRIN) 81 34 Medical mg EC Branch tablet meloxicam 0 Yes 15mg Take 15 mg Un buzz 15 mg 4-01 by mouth ity of tablet 15:30: once daily [place] 34 as needed Medical for Pain. Branch methocarbam 0 Yes 1{tbl} Take 1 Un buzz ol 4-01 tablet by ity of (ROBAXIN-75 15:30: mouth [place] 0 ORAL) 34 needed for Medica l Pain Branch (scale 4-6) (She takes it once daily as needed). aspirin 0 Yes 81mg Take 81 mg Univ ers (ADULT LOW 4-01 by mouth ity o f DOSE 15:30: daily. [place] ASPIRIN) 81 34 Medical mg EC Branch tablet meloxicam 0 Yes 15mg Take 15 mg Un buzz 15 mg -01 by mouth ity of tablet 15:30: once daily [place] 34 as needed Medical for Pain. Branch methocarbam 0 Yes 1{tbl} Take 1 Un buzz ol 4-01 tablet by ity of (ROBAXIN-75 15:30: mouth [place] 0 ORAL) 34 needed for Medica l Pain Branch (scale 4-6) (She takes it once daily as needed). aspirin 0 Yes 81mg Take 81 mg Univ ers (ADULT LOW 4-01 by mouth ity o f DOSE 15:30: daily. [place] ASPIRIN) 81 34 Medical mg EC Branch tablet nabumetone 0 2020- No 750mg Take 750 U nivers 750 mg 01-13 mg by ity of tablet 15:27: 00:00 mouth [place] 24 :00 daily. Medical Branch nabumetone 2020-0 202- No 750mg Take 750 U nivers 750 mg 01-13 mg by ity of tablet 15:27: 00:00 mouth [place] 24 :00 daily. Medical Branch multivitami Yes 1{tbl} Take 1 Un buzz n,tx-minera 01-13 tablet by ity of ls tablet 15:27: mouth [place] 14 daily. Medical Branch BIOTIN ORAL Yes Take by Un buzz 01-13 mouth. ity of 15:27: [place] 14 Medical Branch ergocalcife Yes Take by Un buzz rol, 01-13 mouth. ity of vitamin D2, 15:27: [place] (VITAMIN D 14 Medical ORAL) Branch calcium Yes Take by Univer s carbonate 01-13 mouth. ity of (CALCIUM 15:27: [place] 500 ORAL) 14 Medical Branch multivitami Yes 1{tbl} Take 1 Un buzz n,tx-minera 01-13 tablet by ity of ls tablet 15:27: mouth [place] 14 daily. Medical Branch BIOTIN ORAL Yes Take by Un buzz 01-13 mouth. ity of 15:27: [place] 14 Medical Branch ergocalcife Yes Take by Un buzz rol, 01-13 mouth. ity of vitamin D2, 15:27: [place] (VITAMIN D 14 Medical ORAL) Branch calcium Yes Take by Univer s carbonate 01-13 mouth. ity of (CALCIUM 15:27: [place] 500 ORAL) 14 Medical Branch multivitami Yes 1{tbl} Take 1 Un buzz n,tx-minera 01-13 tablet by ity of ls tablet 15:27: mouth [place] 14 daily. Medical Branch BIOTIN ORAL Yes Take by Un buzz 01-13 mouth. ity of 15:27: [place] 14 Medical Branch ergocalcife Yes Take by Un buzz rol, 01-13 mouth. ity of vitamin D2, 15:27: [place] (VITAMIN D 14 Medical ORAL) Branch calcium Yes Take by Univer s carbonate 01-13 mouth. ity of (CALCIUM 15:27: [place] 500 ORAL) 14 Medical Branch multivitami Yes 1{tbl} Take 1 Un buzz n,tx-minera 01-13 tablet by ity of ls tablet 15:27: mouth [place] 14 daily. Medical Branch BIOTIN ORAL 0 Yes Take by Un buzz 4-01 mouth. ity of 15:27: [place] 14 Medical Branch ergocalcife 0 Yes Take by Un buzz rol, 01-13 mouth. ity of vitamin D2, 15:27: [place] (VITAMIN D 14 Medical ORAL) Branch calcium 0 Yes Take by Univer s carbonate 4 mouth. ity of (CALCIUM 15:27: [place] 500 ORAL) 14 Medical Branch multivitami Yes 1{tbl} Take 1 Un buzz n,tx-minera 01-13 tablet by ity of ls tablet 15:27: mouth [place] 14 daily. Medical Branch BIOTIN ORAL 0 Yes Take by Un buzz 01-13 mouth. ity of 15:27: [place] 14 Medical Branch ergocalcife Yes Take by Un buzz rol, 01-13 mouth. ity of vitamin D2, 15:27: [place] (VITAMIN D 14 Medical ORAL) Branch calcium Yes Take by Univer s carbonate 01-13 mouth. ity of (CALCIUM 15:27: [place] 500 ORAL) 14 Medical Branch multivitami Yes 1{tbl} Take 1 Un buzz n,tx-minera - tablet by ity of ls tablet 15:27: mouth [place] 14 daily. Medical Branch BIOTIN ORAL 0 Yes Take by Un buzz 01-13 mouth. ity of 15:27: [place] 14 Medical Branch ergocalcife Yes Take by Un buzz rol, 01-13 mouth. ity of vitamin D2, 15:27: [place] (VITAMIN D 14 Medical ORAL) Branch calcium 0 Yes Take by Univer s carbonate 01-13 mouth. ity of (CALCIUM 15:27: [place] 500 ORAL) 14 Medical Branch multivitami 0 Yes 1{tbl} Take 1 Un buzz n,tx-minera 4 tablet by ity of ls tablet 15:27: mouth [place] 14 daily. Medical Branch BIOTIN ORAL 0 Yes Take by Un buzz 4- mouth. ity of 15:27: [place] 14 Medical Branch ergocalcife 0 Yes Take by Un buzz rol, 01-13 mouth. ity of vitamin D2, 15:27: [place] (VITAMIN D 14 Medical ORAL) Branch calcium Yes Take by Univer s carbonate 01-13 mouth. ity of (CALCIUM 15:27: [place] 500 ORAL) 14 Medical Branch multivitami Yes 1{tbl} Take 1 Un buzz n,tx-minera 4 tablet by ity of ls tablet 15:27: mouth [place] 14 daily. Medical Branch BIOTIN ORAL 0 Yes Take by Un buzz 01-13 mouth. ity of 15:27: [place] 14 Medical Branch ergocalcife Yes Take by Un buzz rol, 01-13 mouth. ity of vitamin D2, 15:27: [place] (VITAMIN D 14 Medical ORAL) Branch calcium Yes Take by Univer s carbonate 01-13 mouth. ity of (CALCIUM 15:27: [place] 500 ORAL) 14 Medical Branch multivitami Yes 1{tbl} Take 1 Un buzz n,tx-minera 01-13 tablet by ity of ls tablet 15:27: mouth [place] 14 daily. Medical Branch BIOTIN ORAL 0 Yes Take by Un buzz 01-13 mouth. ity of 15:27: [place] 14 Medical Branch ergocalcife Yes Take by Un buzz rol, 01-13 mouth. ity of vitamin D2, 15:27: [place] (VITAMIN D 14 Medical ORAL) Branch calcium Yes Take by Univer s carbonate 01-13 mouth. ity of (CALCIUM 15:27: [place] 500 ORAL) 14 Medical Branch multivitami Yes 1{tbl} Take 1 Un buzz n,tx-minera 01-13 tablet by ity of ls tablet 15:27: mouth [place] 14 daily. Medical Branch BIOTIN ORAL 0 Yes Take by Un buzz 4 mouth. ity of 15:27: [place] 14 Medical Branch ergocalcife Yes Take by Un buzz rol, 01-13 mouth. ity of vitamin D2, 15:27: [place] (VITAMIN D 14 Medical ORAL) Branch calcium Yes Take by Univer s carbonate 01-13 mouth. ity of (CALCIUM 15:27: [place] 500 ORAL) 14 Medical Branch multivitami Yes 1{tbl} Take 1 Un buzz n,[place]-minera 4- tablet by ity of ls tablet 15:27: mouth [place] 14 daily. Medical Branch BIOTIN ORAL Yes Take by Un buzz 01-13 mouth. ity of 15:27: [place] 14 Medical Branch ergocalcife Yes Take by Un buzz rol, 01-13 mouth. ity of vitamin D2, 15:27: [place] (VITAMIN D 14 Medical ORAL) Branch calcium Yes Take by Univer s carbonate 01-13 mouth. ity of (CALCIUM 15:27: [place] 500 ORAL) 14 Medical Branch multivitami Yes 1{tbl} Take 1 Un buzz n,tx-minera 01-13 tablet by ity of ls tablet 15:27: mouth [place] 14 daily. Medical Branch BIOTIN ORAL Yes Take by Un buzz 01-13 mouth. ity of 15:27: [place] 14 Medical Branch ergocalcife Yes Take by Un buzz rol, 01-13 mouth. ity of vitamin D2, 15:27: [place] (VITAMIN D 14 Medical ORAL) Branch calcium Yes Take by Univer s carbonate 01-13 mouth. ity of (CALCIUM 15:27: [place] 500 ORAL) 14 Medical Branch calcium Yes Take by Univer s carbonate 03-10 mouth. ity of (CALCIUM 14:10: [place] 500 ORAL) 14 Medical Branch calcium Yes Take by Univer s carbonate 03-10 mouth. ity of (CALCIUM 14:10: [place] 500 ORAL) 14 Medical Branch calcium 2020 Yes Take by Univer s carbonate 03-10 mouth. ity of (CALCIUM 14:10: [place] 500 ORAL) 14 Medical Branch calcium 0 Yes Take by Univer s carbonate 03-10 mouth. ity of (CALCIUM 14:10: [place] 500 ORAL) 14 Medical Branch calcium 20200 Yes Take by Univer s carbonate 03-10 mouth. ity of (CALCIUM 14:10: [place] 500 ORAL) 14 Medical Branch calcium Yes Take by Univer s carbonate 03-10 mouth. ity of (CALCIUM 14:10: [place] 500 ORAL) 14 Medical Branch ergocalcife Yes Take by Un buzz rol, 03-10 mouth. ity of vitamin D2, 14:09: [place] (VITAMIN D 29 Medical ORAL) Branch ergocalcife 2020-0 Yes Take by Un buzz rol, 5-27 mouth. ity of vitamin D2, 14:09: [place] (VITAMIN D 29 Medical ORAL) Branch ergocalcife 2020-0 Yes Take by Un buzz rol, 5-27 mouth. ity of vitamin D2, 14:09: [place] (VITAMIN D 29 Medical ORAL) Branch ergocalcife 2020-0 Yes Take by Un buzz rol, 5-27 mouth. ity of vitamin D2, 14:09: [place] (VITAMIN D 29 Medical ORAL) Branch ergocalcife 2020-0 Yes Take by Un buzz rol, 5-27 mouth. ity of vitamin D2, 14:09: [place] (VITAMIN D 29 Medical ORAL) Branch ergocalcife 2020-0 Yes Take by Un buzz rol, 5-27 mouth. ity of vitamin D2, 14:09: [place] (VITAMIN D 29 Medical ORAL) Branch BIOTIN ORAL 2020-0 Yes Take by Un buzz 5-27 mouth. ity of 14:08: [address] Branch BIOTIN ORAL 2020-0 Yes Take by Un buzz 5-27 mouth. ity of 14:08: [place] [id number] Medical Branch BIOTIN ORAL 2020-0 Yes Take by Un buzz 5-27 mouth. ity of 14:08: [address] Branch BIOTIN ORAL 2020-0 Yes Take by Un buzz 5-27 mouth. ity of 14:08: [address] Branch BIOTIN ORAL 2020-0 Yes Take by Un buzz 5-27 mouth. ity of 14:08: [address] Branch BIOTIN ORAL 2020-0 Yes Take by Un buzz 5-27 mouth. ity of 14:08: [address] Branch multivitami 2020-0 Yes 1{tbl} Take 1 Un buzz n,[place]-minera 5-27 tablet by ity of ls tablet 14:07: mouth [place] 45 daily. Medical Branch multivitami 2020-0 Yes 1{tbl} Take 1 Un buzz n,tx-minera 5-27 tablet by ity of ls tablet 14:07: mouth [place] 45 daily. Medical Branch multivitami 2020-0 Yes 1{tbl} Take 1 Un buzz n,tx-minera 5-27 tablet by ity of ls tablet 14:07: mouth [place] 45 daily. Medical Branch multivitami 2020-0 Yes 1{tbl} Take 1 Un buzz n,tx-minera 5-27 tablet by ity of ls tablet 14:07: mouth [place] 45 daily. Medical Branch multivitami 2020-0 Yes 1{tbl} Take 1 Un buzz n,tx-minera 5-27 tablet by ity of ls tablet 14:07: mouth [place] 45 daily. Medical Branch multivitami 2020-0 Yes 1{tbl} Take 1 Un buzz n,tx-minera 5-27 tablet by ity of ls tablet 14:07: mouth [place] 45 daily. Medical Branch multivitami 2020-0 Yes 1{tbl} Take 1 Un buzz n,tx-minera 5-27 tablet by ity of ls tablet 14:07: mouth [place] 45 daily. Medical Branch ciclopirox 2020-0 Yes [id number] Apply to Univers 8 % 5-27 area(s) at ity of solution 00:00: bedtime. [place] 00 Apply to Medical Nails. Branch ciclopirox 2020-0 Yes [id number] Apply to Univers 8 % 5-27 area(s) at ity of solution 00:00: bedtime. [place] 00 Apply to Medical Nails. Branch ciclopirox 2020-0 Yes [id number] Apply to Univers 8 % 5-27 area(s) at ity of solution 00:00: bedtime. [place] 00 Apply to Medical Nails. Branch ciclopirox 2020-0 Yes [id number] Apply to Univers 8 % 5-27 area(s) at ity of solution 00:00: bedtime. [place] 00 Apply to Medical Nails. Branch ciclopirox 2020-0 Yes [id number] Apply to Univers 8 % 5-27 area(s) at ity of solution 00:00: bedtime. [place] 00 Apply to Medical Nails. Branch ciclopirox 2020-0 Yes [id number] Apply to Univers 8 % 5-27 area(s) at ity of solution 00:00: bedtime. [place] 00 Apply to Medical Nails. Branch ciclopirox 2020-0 Yes [id number] Apply to Univers 8 % 5-27 area(s) at ity of solution 00:00: bedtime. [place] 00 Apply to Medical Nails. Branch ciclopirox 2020-0 Yes [id number] Apply to Univers 8 % 5-27 area(s) at ity of solution 00:00: bedtime. [place] 00 Apply to Medical Nails. Branch ciclopirox 2020-0 Yes [id number] Apply to Univers 8 % 5-27 area(s) at ity of solution 00:00: bedtime. [place] 00 Apply to Medical Nails. Branch ciclopirox 2020-0 Yes [id number] Apply to Univers 8 % 5-27 area(s) at ity of solution 00:00: bedtime. [place] 00 Apply to Medical Nails. Branch ciclopirox 2020-0 Yes [id number] Apply to Univers 8 % 5-27 area(s) at ity of solution 00:00: bedtime. [place] 00 Apply to Medical Nails. Branch ciclopirox 2020-0 Yes [id number] Apply to Univers 8 % 5-27 area(s) at ity of solution 00:00: bedtime. [place] 00 Apply to Medical Nails. Branch ciclopirox 2020-0 Yes [id number] Apply to Univers 8 % 5-27 area(s) at ity of solution 00:00: bedtime. [place] 00 Apply to Medical Nails. Branch ciclopirox 2020-0 Yes [id number] Apply to Univers 8 % 5-27 area(s) at ity of solution 00:00: bedtime. [place] 00 Apply to Medical Nails. Branch ciclopirox 2020-0 Yes [id number] Apply to Univers 8 % 5-27 area(s) at ity of solution 00:00: bedtime. [place] 00 Apply to Medical Nails. Branch ciclopirox 2020-0 Yes [id number] Apply to Univers 8 % 5-27 area(s) at ity of solution 00:00: bedtime. [place] 00 Apply to Medical Nails. Branch ciclopirox 2020-0 Yes [id number] Apply to Univers 8 % 5-27 area(s) at ity of solution 00:00: bedtime. [place] 00 Apply to Medical Nails. Branch Immunizations Ordered Filled Immunization Date Status Comments [facility] e Immunization Name Name Twinrix (hep a/hep 2018-07-29 Completed Univer sity of b) 00:00:00 [place] Medical Branch Twinrix (hep a/hep 2018-07-29 Completed Univer sity of b) 00:00:00 [facility] (hep a/hep 2018-07-29 Completed Univer sity of b) 00:00:00 [facility] (hep a/hep 2018-07-29 Completed Univer sity of b) 00:00:00 [facility] (hep a/hep 2018-07-29 Completed Univer sity of b) 00:00:00 [facility] (hep a/hep 2018-07-29 Completed Univer sity of b) 00:00:00 [facility] (hep a/hep 2018-07-29 Completed Univer sity of b) 00:00:00 [facility] (hep a/hep 2018-07-29 Completed Univer sity of b) 00:00:00 [facility] (hep a/hep 2018-07-29 Completed Univer sity of b) 00:00:00 [facility] (hep a/hep 2018-07-29 Completed Univer sity of b) 00:00:00 [facility] (hep a/hep 2018-07-29 Completed Univer sity of b) 00:00:00 [facility] (hep a/hep 2018-07-29 Completed Univer sity of b) 00:00:00 [facility] (hep a/hep 2018-07-29 Completed Univer sity of b) 00:00:00 [facility] (hep a/hep 2018-07-29 Completed Univer sity of b) 00:00:00 [facility] (hep a/hep 2018-07-29 Completed Univer sity of b) 00:00:00 [facility] (hep a/hep 2018-07-29 Completed Univer sity of b) 00:00:00 [facility] (hep a/hep 2018-07-29 Completed Univer sity of b) 00:00:00 [facility] (hep a/hep 2018-07-29 Completed Univer sity of b) 00:00:00 [facility] (hep a/hep 2018-07-29 Completed Univer sity of b) 00:00:00 [facility] (hep a/hep 2018-02-01 Completed Univer sity of b) 00:00:00 [facility] (hep a/hep 2018-02-01 Completed Univer sity of b) 00:00:00 [facility] (hep a/hep 2018-02-01 Completed Univer sity of b) 00:00:00 [facility] (hep a/hep 2018-02-01 Completed Univer sity of b) 00:00:00 [facility] (hep a/hep 2018-02-01 Completed Univer sity of b) 00:00:00 [facility] (hep a/hep 2018-02-01 Completed Univer sity of b) 00:00:00 [facility] (hep a/hep 2018-02-01 Completed Univer sity of b) 00:00:00 [facility] (hep a/hep 2018-02-01 Completed Univer sity of b) 00:00:00 [facility] (hep a/hep 2018-02-01 Completed Univer sity of b) 00:00:00 [facility] (hep a/hep 2018-02-01 Completed Univer sity of b) 00:00:00 [facility] (hep a/hep 2018-02-01 Completed Univer sity of b) 00:00:00 [facility] (hep a/hep 2018-02-01 Completed Univer sity of b) 00:00:00 [facility] (hep a/hep 2018-02-01 Completed Univer sity of b) 00:00:00 [facility] (hep a/hep 2018-02-01 Completed Univer sity of b) 00:00:00 [facility] (hep a/hep 2018-02-01 Completed Univer sity of b) 00:00:00 [facility] (hep a/hep 2018-02-01 Completed Univer sity of b) 00:00:00 [facility] (hep a/hep 2018-02-01 Completed Univer sity of b) 00:00:00 [facility] (hep a/hep 2018-02-01 Completed Univer sity of b) 00:00:00 [facility] Twin[facility] (hep a/hep 2018-02-01 Completed Univer sity of b) 00:00:00 [facility] Vital Signs Vital Name Observation Time Observation Value Comments Source Systolic blood 2021-01-13 15:01:00 126 mm[Hg] Univer sity of pressure [facility] Diastolic blood 2021-01-13 15:01:00 85 mm[Hg] Unive rsity of pressure [facility] Heart rate 2021-01-13 15:01:00 69 /min [facility] Body temperature 2021-01-13 15:01:00 36.11 [facility] 2021-01-13 15:01:00 18 /min Univ ersity [facility] Body weight 2021-01-13 15:01[facility] 2021-01-13 15:01:00 22.09 kg/m2 [facility] Oxygen saturation in 2021-01-13 15:01:00 100 /min room air [facility] Arterial blood by [facility] Pulse oximetry Branch Systolic blood 2021-07-21 18:30:00 117 mm[Hg] pressure Diastolic blood 2021-07-21 18:30:00 71 mm[Hg] MD Destiny urena pressure Heart rate 2021-07-21 18:30:00 73 /min MD Isaac avendaño Respiratory rate 2021-07-21 18:30:00 15 /min MD Tricia kunz Oxygen saturation in 2021-07-21 18:30:00 99 /min MD Francisco Arterial blood by Pulse oximetry Body temperature 2021-07-21 16:50:00 36.61 Parisa MD Tricia kunz Body weight 2021-07-21 16:50:00 68 kg MD Gray son BMI 2021-07-21 16:50:00 22.77 kg/m2 MD Isaac avendaño Body height 2021-06-13 12:46:44 172.8 cm MD Isaac avendaño Procedures Procedure Date / Time Performing Clinician Source Performed PATHOLOGY BIOPSY 2021-07-21 17:32:00 Gary Mary MD INTERPRETATION ENDOSCOPY NOTE RESULTS 2021-07-21 17:13:06 Gary Mary MD DIAGNOSTIC UPPER 2021-07-21 17:11:00 Gary Mary MD GASTROINTESTINAL ENDOSCOPY DIAGNOSTIC FLEXIBLE 2021-07-21 17:11:00 Gary Mary MD COLONOSCOPY PROXIMAL TO SPLENIC FLEXURE COVID-19 (SARS-COV-2) 2021-07-20 15:12:00 Gary Mary MD PCR ASYMPTOMATIC HOMOCYSTEINE TOTAL 2021-06-13 15:49:00 Lila, Loly Seaman on FREE LAMBDA LIGHT CHAIN 2021-06-13 15:07:00 Lila, Loly kunz IMMUNOGLOBULIN A SERUM 2021-06-13 15:07:00 Lila, Loly urena IMMUNOGLOBULIN E SERUM 2021-06-13 15:07:00 Lila, Loly urena IMMUNOGLOBULIN G SERUM 2021-06-13 15:07:00 Lila, Loly urena IMMUNOGLOBULIN M SERUM 2021-06-13 15:07:00 Lila, Loly urena FERRITIN LVL 2021-06-13 15:07:00 Loly Osorio MD IRON LEVEL 2021-06-13 15:07:00 Lila, Loly Francisco TRANSFERRIN 2021-06-13 15:07:00 Lila, Loly Francisco PERIPHERAL SMR FOR DOC 2021-06-13 15:07:00 Loly Osorio MD REVIEW COMPLETE BLOOD COUNT W/ 2021-06-13 15:07:00 Lila, Loly kunz DIFFERENTIAL VITAMIN B6 (PLP AND PA) 2021-06-13 15:07:00 Lila, Loly kunz PROFILE COPPER LEVEL 2021-06-13 15:07:00 Loly Osorio MD ZINC LEVEL, SERUM 2021-06-13 15:07:00 Lila, Loly Seamano n METHYLMALONIC ACID 2021-06-13 15:07:00 Lila, Loly Seaman on QUANTATIVE, SERUM PROTEIN ELECTROPHORESIS, 2021-06-13 15:07:00 Lila, Loly Francisco SERUM FREE KAPPA LIGHT CHAIN 2021-06-13 15:07:00 LilaLoly bill MD Results CBC 2021-06-13 15:07:00 Loly Osorio MD MANUAL DIFFERENTIAL 2021-06-13 15:07:00 Loly Osorio MD FREE KAPPA/FREE LAMBDA 2021-06-13 15:07:00 Loly Osorio MD RATIO .DR. KOHLI PROT ELEC PATH 2021-06-13 15:07:00 Loly Osorio MD nderson REVIEW US HEAD NECK SOFT TISSUE 2021-05-18 16:09:07 Celeste Peguero MD THYROID STIMULATING 2021-05-17 15:17:00 Celeste Peguero MD HORMONE FREE THYROXINE 2021-05-17 15:17:00 Celeste Peguero MD HEPATITIS C VIRUS ANTIBODY 2021-05-17 15:17:00 Celeste Peguero TMP HCVAB INTERP 2021-05-17 15:17:00 Celeste Peguero MD OSI US THYROID 2021-05-02 14:36:00 Raven Mary MD OSI THYROID SCAN 2021-05-02 14:36:00 Raven Mary MD OSI BONE DENSITY STUDY 2021-03-11 14:35:00 Raven Mary MD XR CHEST 2 VW 2021-01-13 16:51:11 Carlos Elkins [facility] XR LUMBAR SPINE 3 VW 2021-01-13 16:51:11 Carlos Elkins [facility] XR SACROILIAC JOINTS 3+ VW 2021-01-13 16:51:11 Carlos Elkins [facility] XR CERVICAL SPINE 3 VW 2021-01-13 16:51:11 Carlos Elkins [facility] OSI US THYROID 2020-12-31 20:50:00 Raven Mary MD PATHOLOGY OUTSIDE 2020-12-31 00:00:00 Sol Schaefer MD [facility] INTERPRETATION [id number] 2020-12-07 00:00:00 MATVA.01 [facility] OSI US THYROID 2020-12-03 21:49:00 Raven Mary MD OSI US VASCULAR 2020-11-26 21:49:00 Raven Mary MD [id number] 2020-10-07 00:00:00 MATVA.01 [facility] Plan of Care Planned Activity Planned Date Details Comments Source Future Scheduled Test 1968 00:00:00 COVID-19 Vaccination MD Francisco (1) [code = COVID-19 Vaccination (1)] Encounters Start End Encounter Admission Attending Care Care Encounter Source Date/Time Date/Time Type Type Clinicians Facility Department ID 2021-05-10 Outpatient SYSTEM, [facility] [id number] 10:40:12 PROVIDER Jurgen o n 2020-12-07 Inpatient PANDA Mendez [facility] [id number] [facility] 10:58:00 Niko [id number] [facility] 2020-12-02 Inpatient PANDA Mendez [facility]G [id number] [facility] 10:58:00 Niko [id number] [facility] 2020-10-07 Inpatient EDWINA BorjasTO ADMI [id number] [facility] 12:00:00 Niko [id number] [facility] 2020-07-14 Inpatient PANDA Marcano HCATO RADI [id number] [facility] 12:00:00 Mufaddal [id number] [facility] 2021-10-17 2021-10-17 [facility] [id number] [place] 00:00:00 00:00:00 LEDY 281 Method i 2021-09-30 2021-09-30 [place] [id number] [place] 00:00:00 00:00:00 LEDY 477 Method i 2021-09-27 2021-09-27 [facility] [id number] [place] 00:00:00 00:00:00 LEDY 575 Method i 2021-09-15 2021-09-15 [facility] [id number] [place] 00:00:00 00:00:00 LEDY [address] 2021-09-15 2021-09-15 [facility] [id number] [place] 00:00:00 00:00:00 LEDY [address] 2021-07-21 2021-07-21 Outpatient PANDA MARY MDA Cindi/Hep/Nu [id number] MD 10:51:00 14:10:00 GARY Gray so n 2021-07-20 2021-07-20 Outpatient PANDA PAK MDA MDA [id number] MD 09:51:54 10:29:20 ARVIND Gray so n 2021-07-20 2021-07-20 Outpatient EL ROSEMARY MDA [id number] 10:24:41 10:24:41 Jurgen o n 2021-06-13 2021-06-13 Outpatient PANDA OSORIO MDA MDA [id number] 09:26:10 23:59:00 LOLY Seaman o keke 2021-06-13 2021-06-13 Outpatient PANDA OSORIO MDA MDA [id number] 07:44:22 08:45:18 LOLY davies 2021-05-26 2021-05-26 Outpatient RAVEN NEGRO MDA MDA [id number] 15:26:39 15:26:39 Jurgen o keke 2021-05-26 2021-05-26 Outpatient RAVEN NEGRO MDA MDA [id number] 15:26:37 15:26:37 Jurgen o keke 2021-05-26 2021-05-26 Outpatient RAVEN NEGRO MDA MDA [id number] MD 15:26:33 15:26:33 Jurgen o keke 2021-05-26 2021-05-26 Outpatient RAVEN NEGRO MDA MDA [id number] 15:26:24 15:26:24 Jurgen o keke 2021-05-18 2021-05-18 Outpatient PANDA PEGUERO, MDA MDA [id number] MD 09:24:36 09:24:36 CELESTE Seaman o keke 2021-05-17 2021-05-17 Outpatient PANDA PEGUERO, MDA MDA [id number] 09:45:00 23:59:00 CELESTE Seaman o keke 2021-05-17 2021-05-17 Outpatient RAVEN NEGRO MDA MDA [id number] 07:56:36 10:03:18 Jurgen o keke 2021-05-17 2021-05-17 Outpatient RAVEN NEGRO MDA MDA [id number] 09:31:04 09:31:04 Jurgen o n 2021-05-17 2021-05-17 Outpatient RAVEN NEGRO MDA MDA [id number] 09:30:59 09:30:59 Jurgen o n 2021-05-17 2021-05-17 Outpatient RAVEN NEGRO MDA MDA [id number] 09:30:55 09:30:55 Jurgen o n 2021-05-17 2021-05-17 Outpatient RAVEN NEGRO MDA MDA [id number] 07:46:03 07:46:12 Jurgen o n 2021-03-16 2021-03-16 Office MILENA Gore [id number] [facility] 13:19:31 13:53:[address] [facility] [id number] ity of [facility] 4.2.7.2.686 Textricia s [id number] [address] 2021-03-16 2021-03-16 Outpatient Wilfrid GORE [facility] [id number] Univers 13:30:00 13:30:00 EJ [id number] [facility] 2021-03-16 2021-03-16 [id number] Univers 13:30:00 13:30:00 EJ [facility] 2021-03-08 2021-03-08 Outpatient [facility]ELVIRA [facility] [id number] [facility] 15:00:00 15:00:00 Niko [id number] [facility] 2021-01-18 2021-01-18 Telephone [facility] [id number] 00:00:00 00:00:00 Carlos PRIMARY [id number] CARE 4.2.7.2.686 PAVILLION [id number] 2021-01-18 2021-01-18 Telephone [facility] [id number] Univers 00:00:00 00:00:00 Carlos PRIMARY [id number] it [place] [id number] Ms dical 086 Branch 2021-01-13 2021-01-13 Hospital Lee [facility] [id number] Univers 11:22:36 23:59:00 Encounter Roula PRIMARY [id number] ity of [place] [id number] Ms dical 807 Branch 2021-01-13 2021-01-13 Test And Balance Engineer Pcp-Lab [facility] [id number] Univers 10:59:25 11:14:25 Visit Roula Howard [place] PRIMARY 350.1.13. 10 [place] [id number] Ms dical 366 Branch 2021-01-13 2021-01-13 Office Giovani Elkinsya [facility] [id number] Univers 09:52:16 10:58:43 Visit [place]a Howard [place] PRIMARY 350.1.13. 10 [id number] [id number] Ms dical 086 [place] 2021-01-13 2021-01-13 Outpatient R [facility] [id number] Univers 09:00:00 09:00:00 [id number] ity [facility] 2021-01-13 2021-01-13 [facility] [id number] Univers 09:00:00 09:00:00 [facility]-01-04 2021-01-04 [facility] [id number] Univers 00:00:00 00:00:00 Outreach Branden PRIMARY 350.1.13.10 i ty of [place] [id number] Ms dical 388 Branch 2020-11-19 2020-11-19 Outpatient BOBBI Mendez [id number] [facility] 18:07:00 18:07:00 Niko [id number] [facility] 2020-09-29 2020-09-29 Outpatient Andrea, HCACL LABO [id number] [facility] 17:57:00 17:57:00 Niko [id number] [facility] 2020-09-29 2020-09-29 Outpatient EDWINA MendezWH SIST [id number] [facility] 17:14:00 17:14:00 Niko [id number] [facility] 2020-09-08 2020-09-08 Office Michele [facility] [id number] Univers 10:20:43 10:35:43 Visit Anel ROD 350.1.13.10 ity of [facility] 4.2.7.2.686 [facility] [id number] [address] [facility] 2020-09-08 2020-09-08 Outpatient Wilfrid BAUTISTA [facility] [id number] Univers 10:30:00 10:30:00 ANEL [id number] [facility] 2020-09-08 2020-09-08 Outpatient Wilfrid BAUTISTA [facility] [id number] Univers 10:30:00 10:30:00 [facility] 2020-09-07 2020-09-07 [facility] [id number] [place] 00:00:00 00:00:00 LEDY Becerra Method i 2020-03-10 2020-03-10 Office XIMENA Gore [id number] Univers 16:23:25 17:20:46 Visit Ej Yuen ALBA 350.1.13.10 ity of CLINICS 4.2.7.2.686 [facility] [id number] [place] [address] Branch 2020-03-10 2020-03-10 Outpatient R ROSIE [facility] [id number] Univers 09:30:00 09:30:00 UZMA [id number] [facility] 2020-03-10 2020-03-10 Outpatient R Tiffanie'ELZBIETA [facility] [id number] Univers 09:30:00 09:30:00 [facility] 2020-03-10 2020-03-10 Telemedici O'XIMENA Guido.2.840.11 [id number] [facility] 07:31:40 08:01:[address] [facility] [id number] [id number] [place] [address] Branch 2020-03-05 2020-03-05 Patient XIMENA Velez.2.840.114 [id number] [facility] 00:00:00 00:00:[address] [facility] [id number] [place] [id number] [place] [address] Branch Results Test Description Test Time Test Comments Results Result Comments Source SARS-CoV-2 (COVID-19) RNA [Presence] in Respiratory sp ecimen by 2021-09-27 19:16:15 MONICA with probe detection Test Item Value Reference Range Interpretation Comme nts SARS-CoV-2 (COVID-19) RNA [Presence] in Respiratory Not detected No t-Detected specimen by MONICA with probe detection (test code = 10204-4) Whether patient is employed in a healthcare setting (test code = 32585-3) Whether the patient has symptoms related to condition of interest (test code = 39511-3) Patient was hospitalized because of this condition (test code = 15248-1) Whether the patient was admitted to intensive care unit (ICU) for condition of interest (test code = 12884-3) Whether patient resides in a congregate care setting (test code = 23407-8) Pathology Biopsy [id number] 15:29:58 Test Item Value Reference Range Interpretation Comments Submitted Clinical History [id number] (test code = 27654) mbGFuZzEwMzNcZnRuYm pcdWMxIHtccnRmMVxzc 8VoF1QnLkIrGNsfkpDj XGRlZmxhbmcxMDMzXGZ 0bmJqXHVjMVxkZWZmMH utAo9fsQQkbRyvGpZnE RNce4qrmkUCwoxqvFz9 k6niASQpLnE7dEBnUWt xY5lgviTtaKQsPEXtCP g3iS09DBMdcD2ktLPoZ RgpbxCtZnE6UZexJIWw EgQ6XUNstZOeBZIdK0e yZWQwXGdyZWVuMFxibH JgARD6wAosv5T7tPGwi GVldHtcZjBcZnMyMiBO b0IrQFp5yGblW2PcKWJ lTkO5xABmXNZeESinQG KhNOHpnzC5yF33GLkue gP6tGSvh4Lpu21dz740 xX9prYDzYSE0HRQfRLC puJUkMBZeHSM8WFSjjJ TcQ2pdDBCqOD3ldpqaI BkyFSduVCPcjFX5CHEn xYMcN4OePWCdYZbwPWZ evjw3EeZdId2rnSQbtD jwSJskr5rdk0mdkPMkB jd5YCPmTuGeTfwbJZoi j1Yvw0puCPNwnq1nAZL 1xJNxjFhvr1O5lHHaZC EeiBMnhbGsYAZlWvI5R NoqOA6crn54RQChCDJ5 hu6fsYMfjArhluXarPW sCQtdC1RhSKTkv970VK IhK8BpFCHaa0L2wlBkC bDeVPJivLR2udX4UHYw HHi0qRFlioY0wjXyvNR xQ7voeW8iHWYlHE3vpc ghn9rmPXvvOJnwYHUwb OL2xoB7KWBwiFYrF1Zc wU0kBVHoTTsuNUPcxxl 5YaVtVo5weYSzoIxhOS xzYmtwYWdlXHBnbmNvb nRccGduZGVjXHBsYWlu XHBsYWluXGYwXGZzMjR fhVrtqOjkgB6bCzFiBc FzXIjxHX5gOLEyB0rev BHrRUYkKRPrX2qhDkJt eE2vhHhdHQqralKjFCH vob9plWUwmXSgepGpYM FuX4ngwuX2PABvPO0rQ EYnASAxpyCuphuqoM7y Ldwre8QzyK0bvvXcSFO wLjBdXHBsYWluXGYxXG ZzMjJcbGFuZzEwMzNca GljaFxmMVxkYmNoXGYx ZHdpH5vuLeRsMzJkDqy vCAT5rW== Diagnosis (test code = 34) s9apjDShJYGnfJE9EPE dJFRga1uss9KpgUYsuJ GqQIngfAQgfwSsnn40u SU8jG56TI2xCYJcIbJ3 UJTyyjR9Gsq1DWAjKXO xzYJdC156c3fct6hgfv LmaOF0xYqxTXQrhkyjK fH5KDgbHTUqsbvuGKz7 KRznWSMevXX1GLJopSZ kD1NdNFXyDH1elxr6HS S6NLdbCWPmXmC5ZTTid XDeBNDlgOeiIRmnf726 AKI3ZkNtGJNqcqUpsKw ysF6xKvKrQZCOKhPsEU LmXEXuaU0gIATeh4Qbo TpcbGluZSAgXHRhYiBF d6DzdmVzLAyauKI6tnU mkTHun9PprGAkMDBzHM UcILcwyILgp1ZgXPilq gWcDi9vNZW3x20vS3dl GHSizxEsbXCfVLL3bxu pZXCcr9ZqdBfrnMalRL AgXHRhYiBBbnRyYWwgd NdwHMVnlAHmj4Dju8b9 xYVxDVRqrIp3LMKhGMP 9lj5aRFPojKvquH5gKD AfbOJvOW09hK15hBVuw VMbn1XwFZizpUgvzGil ZCBjaHJvbmljIGluYWN 3mARqKRdth0RwbDXua2 hnbB7hJANqmRNpOE0aJ GludGVzdGluYWwgbWV0 YXBsYXNpYSBvciBILiB weWxvcmkgKEgmRSBzdG FpbilcbGluZSBDLiAgR 7YjeXEzPTNoiYmaN3Yb yITijG6uxPudiphcJnj znBH1KjoagR6vLYTvkM ScHNaSWQv6vxE3uW7yB O44D16cXBI8fGApDY2i dTKiP3xmu00rLzWqzaB aIH2jIRSbh41aDF8aMP LeMRE7lIPiBHRsWC9hM XNcbGluZSAgXHRhYiBO drMefcOny6XotdXeAO0 ldGFwbGFzaWFcbGluZS QTUfKlN32bw65fZLXrS 11qtPPaZ87un98jkM3j qOMkGQoiFDLdfX6bd9r 6EMlsccAnEXf7DRRjO1 8nRYV5EpAwHLYgLCOnn k0mNSRkotAdx94wZSa9 fQWbnNcpq9ZqAoNfa2m 0sWecYAL0 Gross Description (test p5nkoELuXDYtbUGGMOA code = [id number]) bZ6gwmpNaJUSreVUmC3 WzhcchNXbbIH3uND0qe GkkkXRkuQYnNO8HBQRq ZmYxXHBhcGVydzEyMjQ gVGEvoLSmtZZ1ZWKjWX 1hcmdsMTgwMFxtYXJnc vF5HZJtgZHrX7PcWNBe HH5zuvknHAC1AMhzbQ9 plaXVStlsUo6ipVEawJ tcZjFcZmNoYXJzZXQwX QFdrWueXAEaHYq2uR4Z ArtpG93ff6X2Upz4UUK fHJRmD6IsJU4sFJCrwB UfT15OOglbIVH8XGTQO hkmPBZdFX5Nz6jaSYVk pFZqPBW6PPdvkUKdGEI jOCVfTSf8LUVfUYgsfE JyDT5yfGsiPspltQimn 2VjdCBcXGlkIDUxMDAy LXfeTWNoNK1KDpZwJUX oZhO3TZomLPh9CDx9TX 6YVbSrJJSfZXtgMVn4W oLfOYn5FZpcOP5EIHy0 SaZ6IDJ3ZaV2AYFgCmU cXHQgMiBcXGYgQXJpYW wgXFxmcyAxMCBcXGZiI PaqWruhIFluI48dxTdk hP0hOdkgeyMiZDU2IVS hciANClxwbGFpblxlcG ljTmVzdERvYzEgDQpcb HRycGFyXGxpbjBccmlu MCANClxsdHJjaFxiXGN lXMqmptMjYDF0u0Ftvp SxTCEmtP3gJB84lDoyX pBaJ5IoNQAEmnWglLqq geJky4Q9SYHcv6Z3DHL jevQvlHTdyOgkVD8lKN NtLCBlbnRpcmVseSBzd ITupAB8YVOrfV7lDKKj ICBccHJvdGVjdHtcZml zuMM9BGqtWdxxiF8slS BIWVBFUkxJTksgbmFtZ R3OBD7FBaWZCA15JaHn PPQ3SIhDV5KDxUY0Edd 9OAg1uUnnLbylemSqmC MmFnRWfX0PULjdEnelr HV7YJadVvtsmR5qkYIZ WVBFUkxJTksgbmFtZT1 SDH1PKC4NdPUhADR8xT P8YHFXGzjswIL7aYE7a E10BQVpMGGvpVPoQCsr M328ASKdRHljZEv9syR oXGZzMjAgDQpccGxhaW 9iYCKnJ89df0ZKk7LaY QPuEKsrm8avxGmdm7Ue dGVuZFxwYXJccGFyZFx wmR4vAzNol5dwdBt5TW atsoN1RYXnta0PGsocS yfizNlbf8IrfZSpTSvi IDUxMDAyIFxcZGIgIE9 ZJyJsDGCdXzO7NZxdGF o8KWx2FP6XPhQiOIGwT RbkNZx1MRYfTMz5UFia OD4UUWw8BpT1DSb5TjY 1NTUwNyBcXHQgMiBcXG YgQXJpYWwgXFxmcyAxM CBcXGZiIFxcZmwgXFxu O17jRlqiwnZhKBK1OSG hciANClxwbGFpblxlcG ljTmVzdERvYzEgDQpcb HRycGFyXGxpbjBccmlu MCANClxsdHJjaFxiXGN bRInxkhVjIVO3l40fM1 hqVUAefyOavXOvIKW8e maaAuxxLXmyLtThOM2f XPTidS1bWYA2ZrMgMIt vJQGlXQFit96msNR5vL BnfRFpYvIuL36xbdWvI EErDrHasKbcVV40dMAj oKphc8JqqUd2fOPfPDt iIIFvRmOpUBNud8DcS5 B4FPWuJFkjg7ekKUXyU Zwko4NgWBhNEESOUD2Y PL2ldZV4SKvGP5OBJ6k OtXYiJYT0pIZ9ZPAXBx zikCV8hLS8yV58HPFvR BYidEHqGMsrA535Gt29 HHQqBZxkt1tcEERiWUp bm6OxMMoMMWCCNY9KNU 6xhNG8HRfLZ5YBBArgJ ZFoUavofBOVWXY9GNum uJsbxTd0s7ssqVAzt6o 7IIhpFKE8fQlghARehj usiPKzyNaiqcYnTJ1UN HBsYWluXGVwaWNOZXN0 KZ6eYEmimXRrsdcvOPO iD4CrV6FxukCxvNShQA AavhHod3ctHOC6HQAaq XVsdDBcZnMxNlxwYXJ9 TEk3VDvvUIGeU5NmZ2G tONofZIB8VACwDrPhYC RiICBPVlIgIiBDMjYwN EI9RbU7CJn0ATWXRiHo YqJoGTL0WnZ8HWdqNUr 5CUm8WAaFZeV5IKW3Fu T2HyZuFQY1EJjmIXb5K DIgXFxmIEFyaWFsIFxc ZnMgMTAgXFxmYiBcXGZ hLKigwqP4CAPxGaYvII BDOlxwYXIgDQpccGxha Y9lIOJkG88zi7KQe5Ny QE6YGLl2qsKymlaxyJ5 wXHJpbjAgDQpcbHRyY2 hcYlxjZjFcZnMyMCBHY HQ1kh2hu33fpRYrFOHf HWv8xjS8mU6iHFWkFNB 2aj8tb91zhBQzOBYxEF y8ckE8fT4cYsdmARqdO aCxYG9pFVA9ZG4hh62p yAN9dPDzlAKjZkDlP59 lbnQsIDAuNCBjbSwgZW 53oEEofJhbz1LdiDs6r GVkIGluIEMxLiAgXHBy y9LlB7B4BRNyBXlck1c sTSToOLikx6PwANkKTF PYZH4NWG0ypVL7TBjZV 6XXO3fYjNUuTGO5lJW4 EPRXOdxzvKC4wWG9dC7 7AACpYJZdjFOrPQroN0 01Xh07PHVyJYukq2ozA HCkCNofk2SnWMrZJMAJ DJ2JJM1gkBZ5XSqPK7T ORHwyMTAxNnwxfFVTRV X1VYydqQrxnBq3s7pqa RAzt7d7PGfsPTC7rMxl bGFpblxsdHJjaFxmczI eCY3ZELPcLOocDWMzgR IWNHQ0YX5rDNeilNWjw enaDQAjU8ZdB2ClssCh dIXxDSUddsPby0qjSDK 1XHNsbXVsdDBcZnMxNl jrPMP7WPm3DBjjJWOtQ 1GmN1GbWVjtVVZ8IWCe MiBcXGRiICBPVlIgIiB VOeFeQFD4FhG1XMp1CQ HGGcEaIpKvTZL4QnI5D VOlLQf4LMz0KTvLFhL6 PUA8RjO5FvitCRT7TBe lBGq8VYHqONrfSNIdjB FsIFxcZnMgMTAgXFxmY vZhYSOrFYhsorV2RGEm ZnMyMCBEOlxwYXIgDQp dtWogaK1oOSWrZ38qa7 XYt1AmUA9BSIy4hcTzb xzjpX7mJAMqwxSzIIdj kNJxX6wrZljtZdGkWcO wZJBBo1feujedq5ktfI 0pBEIod2lugwYkj8l9k DKjeIR8GRDwIAIzUDBd VHdvIHBpbmtcdTgyMTE xWEl5PjPzOHFep8W7HC Npu6Q2RQWnrzPizGMje EFuRZMrHr8aTxUvU92s ORNnqRhjQMw3XTY3Nl9 lcRVsFPOhckROYB4iLT jckf71MHA9y1axpKUsK MusWtgqnLJfskD3WXlS NESVFUaGGvOqAA2uWXx JTktCRUdJTnwyMTAxNn niuTLDSHA0YJgtrMglt Gl2o1fcyZVyi3c5JXub YAZ5dOLUe4tyuRZnGRf bKexznXZkvoT0LHzZCF HYHJyAKvQmAY4hAFqBV giDAyO8UkRdOEG6GKcT T2LPrGO3Und1KSy6tUj cZmxkcnNsdCBcJzFDfX 5hdHftjU2zcZKlM3wsH nMyMCANClxwbGFpblxl cGljTmVzdERvYzBccGx wpU04AJErjRHsFAI0XV 5kXHBhclxwYXJkXHNsL QF0MSltxY97bYLkXVPh USVxfCPckP0YLSIeVUH 9VDmsqV64kHKpCR7WVC MgZZT8MTCheLMuTHC2M F3yiV9AwW== Disclaimer (test code = [id number] [id number]) mDHDwLFElw5mqKGHfwH FuZzEwMzNcZnRuYmpcd PYcIGApBdPkv1nmj021 lDYxs6jgFEMtKjX0xRT wSNHcyRRdP675YBIqQQ bjz2dzx3HyCHKbsGFvd 6A3WFCRhknhkXn3dQvb J56py6M5LemcD7khLLB eDFRiZ8BtAZ7pVPNtKo x2FLV7EWF1IZHtLOBxA 1XbXV1pTHAqzGLcKNf4 v2xljCckFLOwVNI4p8g qMPgsvaRpRH1kry7dsI z1x8saxrLzECMpDLIba OLQAKDgD8WflXcdAd7y uQw7fShhQisrTBJ1Hkc 2WI5sph95ply8gJyeTO BhbmypWfR5LDdrYCJus enrGWy0FXkhMPNhsHO5 JZVmpWYnY1CuNIFzGV8 hpxe9BJT3QIgvEBUdFj M1BHIihPSbFQJfmRdhG Vypm593FIA7LwQzGV6b G5Plq6U7yP9cfLBjRCL pcXRyNbAkVDQija4kcY RiHGavm9TqOJZ5asU6v KMgfBTcWBXfYZ39Ouwf m1KrKqyoXZW1VOWyhjD vj1Xrw7xyGeCxysJkD4 skT1ShWXLyPXQnQYGeZ bUyrvQel6Efm3RlfEMe uBu3b7tnHTOsHULvhFk rj1jlXEA6KWRbK4E2yM Iqm2ffSOrrOSKlrOU3w zG9HUMejJLpR9UcdU9i TCOuOA2yceq6m0lyKMC 0DWjlDUGwSaK0tpP5GL BcaGVhZGVyeTcyMFxmb 670CFZ6WzKqWJCvv5Pm J4KsqToyC77xtHsqS92 yVQVezJlymH6tjQideL 5cZjBcZnMyNFxxbFxwb PUeebgwDHmqqnS9OWtp rjlzEVIhJSccO9eaNmS hYDYfbNgvZTfhd6SlFP XaWWWwNpqeprX9ALKKo 67yHAYvl0IxPEZanU5c zLMrZRnhdrBzcKS0XMq hdmUgYmVlbiBkZXZlbG 5uYDXqYD2uCRDvorCda e3gkjZlUQElXQBzG2Jd cmlzdGljcyBkZXRlcm1 vlxQwZJO6CMWVUF7SVJ WiGWXkg21wQIDkfQmrs W2vvIDtidTiMLRfq9Mk fO8tzBBAMHSnC5rlDW7 nLSjzu3DgtSOxtDVqiL U4LVBzc0DtXqKhruLow IHbpVFdI7JcuWrcY2fq RWJrANGnuiTxqCHwd0X kVSNgiFU0cDSnWM1ZHl MMp91cOVIdUDHPdrRgH THjdScrbKM4fvF7bC8s LiBJZiBhcHBsaWNhYmx uRRXza187ji6oojC0OI ZtCTEnuvpws0WfKYQhG DXdlR66AVDjIAWsvx4z bxrouHDkmmRvE2Aujhe 7gU6gQITsJFmqGHOkQB ZzMjJcbGFuZzEwMzNca GljaFxmMVxkYmNoXGYx JAgfG0cwAuCkMkMdCkq wYXJ9 MD FranciscoMD COVID-19 (NATHANIEL-CoV-2) PCR Ojfrjydcfnwr7964-95-56 03:35:45 Test Item Value Reference Interpretation Comments Range COVID19 SARS Inpatient Admission Indication (test code = 71071) COVID19 SARS Result Not Detected Not Detected (test code = 11014-5) COVID19 SARS SARS-CoV-2 NOT Detected. Interpretation (test Reference Range: Not code = 36213) Detected Methodology: The [facility] RealTime SARS-CoV-2 assay is a qualitative real-time reverse rodeo performer polymerase chain reaction (office asst-PCR) test to detect RNA from SARS-CoV-2 in nasal, nasopharyngeal and oropharyngeal swabs from patients with signs and symptoms of infection who are suspected of COVID-19 by their health care provider. The [facility] RealTime SARS-CoV-2 performed on the Skyonic000 System is a dual target assay with primers and probes for the RdRp and N genes. Results must be interpreted within the context of all relevant clinical and laboratory findings, and epidemiological risk factors. Positive results are indicative of the presence of SARS-CoV-2 RNA; clinical correlation with patient history and other diagnostic information is necessary to determine patient infection status. Positive results do not rule out bacterial infection or co-infection with other viruses. Negative results do not preclude SARS-CoV-2 infection and should not be used as the sole basis for patient management decisions. The [employer] RealTime SARS-CoV-2 assay is for in vitro diagnostic use under FDA Emergency Use Authorization only. Testing is limited to laboratories certified under the Clinical Laboratory Improvement Amendments of 1988 (CLIA), 42U.S.C. 263a, to perform high complexity tests. The Test was performed by the CLIA-certified, high-complexity Molecular Diagnostics Laboratory (MDL) at [facility] under the Food and Drug Administration (FDA) s Emergency Use Authorization. Factsheet for patients: https://www.mdanderson.org/ AbbottFactSheetPatientsFact sheet for healthcare providers: https://www.mdanderson.org/ AbbottFactSheetHCP Test performed by:The [facility] Molecular Diagnostic [address] [place] [address] [facility] CampusVitamin B6 Jirop6627-87-61 14:00:25 Test Item Value Reference Range Interpretation Comments DARIO-Lexa (test 16 See_Comment --------ADDITIONAL code = 55284-8) INFORMATION- is test was dev eloped and its performance characteristics determined by [facility] in a manner consistent with CLIArequirement s. This test has not been cleare d or approved bythe U.S. Food and Drug Administration. [Automated message] The sy stem which generated this result transmitted ref erence range: 5 - 50 mcg/L. The r eference range was not used to interpret this result as rafa l/abnormal. Pyridoxic Acid 12 See_Comment -------ADDITIONAL (PA)-[place] (test INFORMATION- Th code = 1688-1) is test was d eveloped and its performance characteristics determined by [facility] in a manner consistent with CLIArequirement s. This test has not been cleare d or approved bythe U.S. Food and Drug Administration. Test Performed by:[facility] [address] [place], [place] [address]Ixq Direct or: Nick Arzola M.D. Ph. D.; CLIA# [id number] [Au tomated message] The system [employer] generated this result transmit eliseo reference range: 3 - 30 m cg/L. The reference range was not used to interpret this result as normal/abnormal . MD FranciscoMethylmalonic Acid Quant, Wwvwq0678-78-22 17:10:28 Test Item Value Reference Range Interpretation Comments MMA 0.09 nmol/mL See_Comment -----ADDITIONAL Quant-[place] INFORMATION---- T (test code his test was de veloped and its = 27930-6) performance characteristics determined by [facility] in a manner consistent with CLIArequirement s. This test has not been cleare d or approved bythe U.S. Food and Drug Administration. Test Performed by:[address] [address]Yyl Direct or: Nick Arzola M.D. Ph. D.; CLIA# [id number] [Au tomated message] The system [employer] generated this result transmit eliseo reference range: <=0.40. The reference range was not u sed to interpret this result as normal/abnormal. MD Mirza Szhfu7372-33-12 15:25:30 Test Item Value Reference Interpretation Comments Range [facility] 1.53 See_Comment H --------ADDITIONA (test code = L 5631-7) INFORMATION---- -This test was developed and its performance characteristics determined by [facility] in a manner consistent with CLIArequirement s. This test has not been cl eared or approved bythe U.S. Food and Drug Administra tion. Test Performed by:[facility] [place] [id number] Direct or: Nick Arzola M.D. Ph. D.; CLIA# [id number] [Au tomated message] The sy stem which generated this result transmitted ref erence range: 0.75 - 1.45 mcg /mL. The reference range was not used to interpret th is result as normal/abnormal . Lab Interpretation Abnormal (test code = 67381-6) MD Tellez Snhhl7628-82-04 15:25:29 Test Item Value Reference Range Interpretation Comments Zinc [facility] 1.09 See_Comment ------ADDITIONAL (test code = INFORMATION---- This 5763-8) test was develo ped and its performance characteristics determined by [facility] in a man ner consistent with CLIArequirement s. This test has not been cleare d or approved bythe U.S. Food and D rug Administration. Test Performed by:[facility] [address] [place], [place] [address]Lab Director: Nick mckenzie M.D. Ph.D.; CLIA# [id number] [Automated message] The sy stem which generated this result transmitted reference range : 0.66 - 1.10 mcg/mL. The ref erence range was not used to int erpret this result as normal/abnor mal. [facility] Electrophoresis Path Nekhdr7933-80-02 20:35:50SPE Path InterpThe serum protein electrophoretic pattern does not show definite evidence of anM-protein peak. If a paraproteinemia is suspected clinically, however, serum free light chain studies, serum protein PEARL studies, serum immunoglobulin quantitation and urine Bence-Venegas protein studies are recommended. Comment: HUBERT KOHLI MD, PhD - [id number] by: HUBERT KOHLI MD, PhD - [id number] Date/Time: 06.13.2021 15:35 PM CDT Transcribed Date/Time: 06.13.2021 15:35 PM CDTElectronically Signed By: HUBERT KOHLI MD, PhD - [id number] on 06.13.2021 15:35 PM [facility] Diodfljoxhdenmr6523-76-95 20:35:49 Test Item Value Reference Range Interpretation Comments TOT PROTEIN (test code 7 See_Comment [Aut omated message] The = 8545) system which ge nerated this result tra nsmitted reference range : 6.4 - 8.3 gm/dL. The reference range was not u sed to interpret this result as normal/abnormal . Albumin (test code = 4.6 See_Comment [Autom ated message] The 175-) system which ge nerated this result tra nsmitted reference range : 3.6 - 5.4 gm/dL. The reference range was not u sed to interpret this result as normal/abnormal . Alpha 1 Globulin (test 0.3 See_Comment [Aut omated message] The code = 2865-4) system which generated this result tra nsmitted reference range : 0.2 - 0.4 gm/dL. The reference range was not u sed to interpret this result as normal/abnormal . Alpha 2 Globulin (test 0.7 See_Comment [Aut omated message] The code = 2868-8) system which generated this result tra nsmitted reference range : 0.5 - 1.0 gm/dL. The reference range was not u sed to interpret this result as normal/abnormal . Beta Globulin (test 0.8 See_Comment [Automa eliseo message] The code = 2871-2) system which generated this result tra nsmitted reference range : 0.5 - 1.1 gm/dL. The reference range was not u sed to interpret this result as normal/abnormal . Gamma Globulin (test 0.7 See_Comment [Autom ated message] The code = 2874-6) system which generated this result tra nsmitted reference range : 0.7 - 1.6 gm/dL. The reference range was not u sed to interpret this result as normal/abnormal . MD Casey Hettinger/Free Lambda Roioq2093-18-90 19:13:07 Test Item Value Reference Range Interpretation Comments FKap/FLam RT (test code = 5566) 0.93 0.26-1.65 MD Casey Lambda Light Bwsmv7814-80-27 19:13:06 Test Item Value Reference Range Interpretation Comments Free Lambda (test code = 5630) 11.54 mg/L 5.71-26.30 MD Casey Hettinger Light Rudaq4554-24-58 19:13:05 Test Item Value Reference Range Interpretation Comments Free Hettinger (test code = 5629) 10.78 mg/L 3.30-19.40 MD FranciscoWrktahsgYbS9625-02-30 19:13:04 Test Item Value Reference Range Interpretation Comments IgM (test code = 6023) 95 mg/dL 35-242 MD FranciscoQxjcwoshIhY5126-25-49 19:13:03 Test Item Value Reference Range Interpretation Comments IgG (test code = 6001) 632 mg/dL 610-1616 MD FranciscoNxhmebyhFxP9862-62-40 19:13:02 Test Item Value Reference Range Interpretation Comments IgA (test code = 5992) 107 mg/dL 85-499 MD FranciscoHomocysteine Itaga1428-72-49 18:05:29 Test Item Value Reference Range Interpretation Comments Homocysteine (test code = 8.0 See_Comment [ Automated message] 5921) The system whic h generated this result transmitted ref erence range: <=15.0 m cmol/L. The reference r nahomi was not used to int erpret this result as normal/abnormal . MD FranciscoLpsavqcuVbA1029-16-59 16:40:19 Test Item Value Reference Range Interpretation Comments IgE (test code = 53.3 See_Comment [Automated message] The 6000) system which ge nerated this result transmit eliseo reference range : <=200.0 IU/mL. The refe rence range was not used to interpret this result as normal/abnormal . MD FranciscoFerritin Xxdhc8978-08-86 16:40:18 Test Item Value Reference Range Interpretation Comments Ferritin Lvl (test code = 5608) 17 ng/mL 13-150 MD FranciscoTransferrin with [id number] 16:29:37 Test Item Value Reference Range Interpretation Comments Transferrin (test code = 359 mg/dL 792-532 0768) TIBC (test code = 7532) 503 See_Comment H [Au tomated message] The system whic h generated this result transmit eliseo reference range : 250 - 450 mcg/dL. T he reference range was not used to interpret this result as normal/abnormal . Lab Interpretation (test Abnormal code = 99193-5) MD FranciscoIron Kpnzw1408-47-96 16:29:36 Test Item Value Reference Range Interpretation Comments Iron (test code = 74 See_Comment [Automate d message] The 6066) system which ge nerated this result transmit eliseo reference range : 37 - 145 mcg/dL. The ref erence range was not used to interpret this result as normal/abnormal . MD FranciscoIrbkapfwLlihjuwqavcz4723-38-12 15:36:46 Test Item Value Reference Range Interpretation Comments Neutrophil % (test code 50.9 % 42.0-66.0 As p art of = 6491) Differential performed at [facility], [address], [address], [place] [address] Lymphocyte % (test code 35.6 % 24.0-44.0 = 6194) Monocyte % (test code = 8.8 % 2.0-7.0 H 6422) Eosinophil % (test code 3.6 % 1.0-4.0 = 5520) Basophil % (test code = 0.8 % 0.0-1.0 5068) IGRE % (test code = 0.3 % 0.0-0.4 IGRE % c ount includes 5958) Metamyelocytes, Myelocytes, and Promyelocytes. As part of Differe ntial performed at [facility], [address], [place] [address] Neutrophil Abs (test 1.84 K/uL 1.70-7.30 code = 6492) Lymphocyte Abs (test 1.29 K/uL 1.00-4.80 code = 6195) Monocyte Abs (test code 0.32 K/uL 0.08-0.70 = 6423) Eosinophil Abs (test 0.13 K/uL 0.04-0.40 code = 5521) Basophil Abs (test code 0.03 K/uL 0.00-0.10 = 5069) IG Abs (test code = 0.01 K/uL 0.00-0.04 5954) Lab Interpretation Abnormal (test code = 31668-4) MD Francisco.IOL2509-85-13 15:36:43 Test Item Value Reference Range Interpretation Comments WBC (test code = 8034) 3.6 K/uL 4.0-11.0 L RBC (test code = 6932) 4.09 See_Comment [Aut omated message] The system [employer] generated this result transmitted ref erence range: 4.00 - 5 .50 M/uL. The refer ence range was not u sed to interpret this result as normal/abnor mal. Hgb (test code = 5898) 13.2 See_Comment As pa rt of CBC or as an individual orderable testi ng performed at [facility], [address], [place] [address] [Automate d message] The sy stem which generated this result transmit eliseo reference range : 12.0 - 16.0 gm/dL. T he reference range was not used to int erpret this result as normal/abnormal . Hct (test code = 5860) 42.1 % 37.0-47.0 As pa rt of CBC or as an individual orderable testi ng performed at [facility], [address], [place] [address] MCV (test code = 6222) 103 fL 82-98 H MCH (test code = 6220) 32.3 pg 27.0-31.0 H MCHC (test code = 6221) 31.4 See_Comment [Au tomated message] The system [employer] generated this result transmitted ref erence range: 31.0 - 3 6.0 gm/dL. The refe rence range was not u sed to interpret this result as normal/abnor mal. RDW-SD (test code = 46.1 fL 35.1-46.3 6972) RDW-CV (test code = 12.1 % 12.0-15.5 6971) Platelet count (test 258 K/uL 140-440 As part of CBC or as code = 6832) an individual orderable testi ng performed at [facility], [address], [facility] [address] MPV (test code = 6282) 9.9 fL 4.0-10.4 INRBC (test code = 0.0 % See_Comment The INRBC (instrument 5974) NRBC) value ref lects the enumeration of nucleated red b lood cells contained in a 200uL sampleof whole blood analyzed by the instrument. Thi s value maydiffer from the NRBC value repo rted in a manual differential,wh ich is based on a 100 cell differential. A s part of CBC testing performed at [facility] [address], [place], [place] [address] [Automated mess age] The system [employer] generated this result transmitted ref erence range: <=0.0. T he reference range was not used to int erpret this result as normal/abnormal . Lab Interpretation Abnormal (test code = 94139-7) MD FranciscoPeripheral [facility] Nhujhp5915-45-29 15:36:42 Test Item Value Reference Range Interpretation Comments Peripheral Smear (test code = 4273) SERGEY FranciscoPathology Outside Pqomxltvungcbj6017-32-21 19:49:13 Test Item Value Reference Range Interpretation Comments Materials Received (test b1izxOHwMSMdyISuIjDe code = 9973) DYDbRYMec6awGKOyoBRf ZzEwMzNcZnRuYmpcdWMx HUDnSxDgi8rmw360vGSv n1uaTEOmOaA6xIFbROUz kDAwW957SGTvOBlxg0qh p3BnLWIqnXFzd1F8VTWU ocnalOh0eDrvB19ky0J9 QgvmO5ikTGQwVZAvC7Fi DW1eTZPnJlg4IMN9RLH1 QBYzRKWfP9OpDA1oJKYl aFAbVHb1h0zbmAzxHRWt LMG3d1niGPbpwoLzKO5n ae9fpDj8e9tageAeOIKi MRKzvPTNBSCxN3GtpLca At4dwYf4kKejCznaTFO4 Ngl4HC3cer88bin8fIag MWUfkrezIrY3AGksUSBc wtnvKSu5XDfhDSPhvFcg MFxtYXJncjcyMFxtYXJn rTW7YBVfkUBtL8SfGAQn FEjeUHUlyxf2AsEyIq0u qRQixSfqWJktb0pfb0mu hJKrFom5MRIsIkNuKraz MAbqy3Nuf2fsSCRajg8s LLJ3pNAlpGepy7Y7oGVy IQHqqARzxvGfLWDqro19 aSGceDNoqKCcyr5xzpGk oROhiYXjDZY7vCIdcjDq OOYzsLYfJPOkBA7xrRTa MZRfpH2kqhncGJYwNeCs fneyLSPnzNuskgElIb8q iVufNRV5FKucK3ehrC5k HdY9OOrbJ2dttA4sGGy6 OJxoaMX7UXTckA9wNR9o fguye7sfVfIsZH8olybm n7viOnZlRW1pgta0b9fq OCX7CHsqTLXzRpS7axZ8 NDBcaGVhZGVyeTcyMFxm u017MUJ5WnMbQTEly1Ay M4SfzQveT31kvVciK37w XQQswOmwmH4jbRcxjS0d TwGwStDoYFf8os32QNn0 vxhzjAmnAMp5irHrSNHn LNZ3SKJjhRYrFWTvY4o6 czMwGIWvOID6GEMjbNLu LKSqU4g3peKyDGZ0SPt7 cnBhZGRmdDNcdHJwYWRk YjBcdHJwYWRkZmIzXHRy vDLvoEVqfPZvoP9xtDxr GDUvyJYbzF0vOII1NCBl cmgzMjBcdHJoZHJcbHRy lq67HQVuyvPinSYkkFka zLQuGCI7ISEpTFJjRXRo ECF6INLoTdVjwqKdAWqy bGJyZHJiXGJyZHJzXGJy YOC6KEHaPiEukiCgSNfl bGJyZHJsXGJyZHJzXGJy LKR6VRWaBqOninPrLEri bGJyZHJyXGJyZHJzXGJy OAQ6QRCeWkRfiqWpGNci bHBhZHQxMFxjbHBhZGZ0 H4jtpCBiVWIsSAflyQHc YWIkO0jldHMxKFeqLQHo cGFkZmwzXGNscGFkYjBc Z7eeONCmDvRaH7FcnLt6 MDAwXGNsdmVydGFsdFxj pCReEPS9WESiNGPqCDZh FGI2MOCnIiIbhpRkUJeb bGJyZHJiXGJyZHJzXGJy HUR4BPFmWyQxljLtPRep bGJyZHJsXGJyZHJzXGJy OFC1JVCjXcXajcZxKDfk bGJyZHJyXGJyZHJzXGJy WZP9EPOtUdCloaRkGCmh bHBhZHQxMFxjbHBhZGZ0 O9xgqTTyMJKmKHzxqKAr EEMwX5onbJUcYSjoTPOd cGFkZmwzXGNscGFkYjBc S5inUUOpZlImT8PuqZs0 NjAwXGNsdmVydGFsdFxj kFMyPPY8PJLeMDAuAOEg BAY2TYVvQyQulfUsIJhi bGJyZHJiXGJyZHJzXGJy JYL8NRLfRuFpnfGfWGwa bGJyZHJsXGJyZHJzXGJy NQB2CMKmHpCfgdQlYNae bGJyZHJyXGJyZHJzXGJy UHH8FLEjElXauqSxVVxr bHBhZHQxMFxjbHBhZGZ0 G3zhaMRnUUSpIKgzdBIl BQEdK2wrcPXdYUymYPRx cGFkZmwzXGNscGFkYjBc O8qjQBYrOtLvE6HcxGk8 KrCxXCItcmQpqY96Lwmp b0MyJIVcLTP8DSifARcw bFxwbGFpblxmMVxmczIw HGiprlztYGBvDLisW9zo TgOeNYSehEgePHynn6Iv XGYxXGNmMlxmczIwXGIg WOXpEDObpT0eIjzxQ3Uv nZ6gSRztTtamS2qwEPIx u4YgwG8qGTdjuTFynjli MVxmczIwXGxhbmcxMDMz OMnoZ7cgSoEcJBDvxZzf HUkor7ArFXEtYFDfRtzq vsWxYQg5lqFvORDcsDkw oWHvHKgamyMufRnhk3Dm bnZqsLqzNKMmVHl4ocSd cxngrFw3dHPsiNynPZFg lGtaeC2vSsLhCfTvXIrt bGFpblxmMVxmczIwXGxh ltemQLDxOYjuL1fhLbNy CTMycNbfBPqxi0BhAIUp IRIdVaoyenQrQERaO93h bGVjdGVkXHBsYWluXGYx XGZzMjBcbGFuZzEwMzNc aGljaFxmMVxkYmNoXGYx ZRraE4hhWrTxJ7FpKHDf GpObjSVvA2oyL8FcuBwf YXJkXGludGJsXHNzcGFy FVL9fUYxsqBmvLOxxWGf UAPfAQfwOJA6aHRizwer gTCbmngpGSciyzO0CTAc YWluXGYxXGZzMjBcbGFu ZzEwMzNcaGljaFxmMVxk BqDiHWIiVXwsP5foZeLt E4MxOUOkMkGmEzASZHWj aXZlZFxwbGFpblxmMVxm czIwXGxhbmcxMDMzXGhp M6reDlTpTJVdpQvzNEab z0WfEDOmAHGfTpoiuoOs VCn3veVgMMMszJdkaS89 Bylydf91ILTym1ljURHp U1VhoUXwVPTttRJcOOjd MDhcdHJwYWRkZmwzXHRy cGFkZHIxMDhcdHJwYWRk ZnIzXHRycGFkZHQwXHRy uZTkRZI9N3b8gkMwMTFo XZr7ccZyNBOgYyOpoLHj QIL5MCm6ErvnciF2nMIl F2e7BcndkpEgOZhfoHYu nk97CDHvcpStaTPtgXeg jWEdYOE6HCJvWQUcXOLp AIO7KESlKcXxhrAkDPix bGJyZHJiXGJyZHJzXGJy RDM5IMXzZvZlgnMgUAyf bGJyZHJsXGJyZHJzXGJy QIM3TLLqWgYlqtMpUKqv bGJyZHJyXGJyZHJzXGJy FCU0CSZeJvLgxtHgMEwe bHBhZHQxMFxjbHBhZGZ0 D4fhoROgUCQdYWolhWTx AWXtH9qlfKJyJNtqYMMl cGFkZmwzXGNscGFkYjBc E5tuSZHbTrAqE1ZmdJp1 MDAwXGNsdmVydGFsdFxj kLBdSZB5HMJiRBVjWAHh ECB6TMMzQjFejnHdIIal bGJyZHJiXGJyZHJzXGJy FRW2ECDeCxXzjbBiMWbu bGJyZHJsXGJyZHJzXGJy VHO6RKOzAfWiglMgOEed bGJyZHJyXGJyZHJzXGJy QOI0FHCdQyIemvUaGEyy bHBhZHQxMFxjbHBhZGZ0 D0kneEHrLCQhFLhegBXf MWEzW4ssiBWrEZywGNAh cGFkZmwzXGNscGFkYjBc G1njNDZdTvTvD8HkmYu1 NjAwXGNsdmVydGFsdFxj sFFtZTH8WUNuYMLbUVAm XSH9UCPnNeCjrfCcAOwu bGJyZHJiXGJyZHJzXGJy JEL9DEGcUwKjuhAcZKos bGJyZHJsXGJyZHJzXGJy TOR0BCOyBnDepuFvTDsr bGJyZHJyXGJyZHJzXGJy TGT2IKLwQgUfkvXuLKpx bHBhZHQxMFxjbHBhZGZ0 B1qctXWvJDDoCBfedDBb HCHwG1omkIEpIZkeLWJr cGFkZmwzXGNscGFkYjBc O6cjLPJsWaXfQ9PqdYf0 UbMmURHjyiOrpE41Xxqv z8HtYBTcCEE5VOptUQrk bFxwbGFpblxmMFxmczI0 XHBsYWluXGYxXGZzMjBc bGFuZzEwMzNcaGljaFxm BBncTnVnDXTeVUyoK0dc KiVtJ6WhCRIrKqMnEJ3g DfD6Ge32MTJmLhYEWdzd AcHHFS2CW6EySRNaFJNH XHBsYWluXGYxXGZzMjBc bGFuZzEwMzNcaGljaFxm LKnhRtNyUEMqBCorC4sc XiNzR8OfXRZaXpRenPRz H2vwK6NkgJeuRZBjSBbh qMOnXOWwvGTsBRC7aLMm ukSgnLyeiIogrG5hNyXv ZnMyNFxwbGFpblxmMVxm czIwXGxhbmcxMDMzXGhp Z3wbFnZqIEOknTmtANzp j1KcGVZhJURbCgihnoTh IDMvMTkvMjAyMVxwbGFp blxmMVxmczIwXGxhbmcx PPHcUWmaQ1scWdEcJGKw yLenREwwk0HsBYUrWNQi MfmzjuAwQCv0kjAhDWZr bGxccGFyZFxpbnRibFxz d6BeeqAaoAkrQCZrDTOz XHBsYWluXGYwXGZzMjRc kNhupN9cGwBiBhEuDKxj FF2jAYPkN0blcBPfQYSj UBUpW7jrHwOmqO1ojCcp JMaeXpAcFyOuKDC0RsSr MjAyMVxwbGFpblxmMVxm czIwXGxhbmcxMDMzXGhp V0hzYqCrEKWxdBmuRBzx h1HfBLUrVMFxJjymtrVq PSs6rjJgIUFwkLzjjH69 Wnqmar90JVSyxdIdy1Ml RNPkVTG7FMhxIZlwkMba sRNwswjyIZrpomT3UCKd YWluXGYxXGZzMjBcbGFu ZzEwMzNcaGljaFxmMVxk TdUqGNPrSUpgC4jcFfGc ZnMyMFxwYXJ9 Diagnosis (test code = k7rzyURwAAKoaKG2DUOg 34) YCSad3pgf4DtaIDxpGTy BEawbEOakvKxrm60eTD1 aN62UP4hXDRiUhN2DHQf ejN3Bgv9VVQyUKBpiOQu G002v1oyq0dxcpGcxVE3 BXCvIKZoR6DjIL5iSSGc oHPrW35iiXVzYAE7EFAn KSVirBSbDCHgPDJ0RPPd sMGoS5pjZVKsSU0obcwe DEolXYlxAYFhqEQ8IREg gTOhE6KkISYhWIfaIQRv mgd7RgJvHu9bxWKrsGae MFxwYXJkXHBsYWluXGZz FwFfmUXbJOQgI9IsrpSt HYZ7ZO29vZSifUbiz3xr VHGdNJczC9VySMDqIuRJ NlldJl2oZB5mQTVeVKHd WDNcH69gbUZdZisxCZXq cGFyXHRhYiBBKSBUaHly r1tiPRRtaTshsAvuPIAa RVNuvJ0bCO5kAQTiLVUi x1PhuuC8pZ0fZxtmVPLu yVCiYISrmke6YKEumCUy XZBttPgnqKHexq8dcCpy XHBhclxwYXJcdGFiIEIp IFRoeXJvaWQsIGxlZnQs IGZpbmUgbmVlZGxlIGFz wIhwCAJst123VZFhaoxr PZRvoMZjHZAqEpXIu3wf d2gdXQ1tXOLlHKmtJQFe cGFyfQ== Disclaimer (test code = x1casDXwOWWscJBfEtJm 9844) VJCvSWCag0rvHSWbvCNk ZzEwMzNcZnRuYmpcdWMx JECwInUzn7xxs853hUEt v5wpINRtUxS9jTXyZLMe oRGtB020OWGlZBbpa5tu c6FzZJMjbJUaw6S5FRNT mojxmEp6qHbrL87ar0U2 BdccQ3xbHEPrYUZwW4Ej JX1xBDCnWnd9BFS8BAV8 QWThHOUnN8IcMW6yEUZs pUYpXKz9s6dybDmrENJr BEW3v1alLZzcezJgAX9u sf9wmCi1v5esbpLaCOOw HIHkuINPHJGjL2ChuHrh Im4wlDo4jEpqCmftAMZ0 Sei0OM8qrq24jvl3zVzp MXOduwxiZoN2YXmjFTEz xlawCOs8NNtuOXMmqRH6 VFKfoNTaA2IpFAXyWF0q oxt4TSH9CZgxKVXpXjG1 NDBcaGVhZGVyeTcyMFxm z060LYG6LcSfTW7bY4Wz y0F9sK4awCCtNHPljLIw MfExYPQrns1mzSJuOUqk x9KwFJU6ypP1sUCauVDl QLAqLK93Zwbki1VcQwmr BGJ3TFFhujZle2Tfk9ib YaVvhwQmC4cbA0XcIQUb QGHdRADfQgMxwiDqn9Hw e1WimURdrXk9t3ywNHQm IGSlpBdvc8ijYYS2DYIf B9J3jFQgp8ldBQsfLDOe tJY7pdB7WAUdpPIuJ1Ly mD5cLJFqUV1cxgh6i4zf WZW3FVmsEIZwTcJ7oeQ7 NDBcaGVhZGVyeTcyMFxm k789TTE2EzHcJCPqq8Jq C4IltJroT08uxDsbD37o DFUniVeajS2toRrsaI1z ZjBcZnMyNFxxbFxwbGFp qmojASobprW5JQwolmna YBZiSFnbJ5lbJmEjANFt kYcuDDtsd8VcZFYdENGu EeviabH8WAWYb14dSIJj m1IgGFMmfB8sfAStSLek bkOowEZ1XHwrpiQzOjHz wqEjJRBbzS0kXBIgUA2g UJZtotGutp3xspYvDMUs KZUuC8NifqctkUchcgAo ETMyes3tutKiVHG5LIDP II7VOILpYWKmx38vVYXz zTgbsB9rqHPqurAnDHNm e2DodL7inMWSOSZuF5de YO9tFStgi7SgqXHxfPKf oIC8XVAox5MyPuRaasWt zBVvuPTzW1FmzEwrO4mz XJZjKSMpokYtuNExo5Dk SNVioAO6xBEhCN8UOcNV p88aKNEyPZOBbjGiCDWv eGtzhCM6hhR4oZ3aBsZX ZiBhcHBsaWNhYmxlLCBj l823xk5pwfO4FXDoIWZh rvwbo0YrRWZnXJFpjY70 KZGcTVSesz2dzaoopYNf dcRwC4Peqkt8pU3kKLIz YWluXGYxXGZzMjJcbGFu ZzEwMzNcaGljaFxmMVxk WjCwKFKmZGomT7bgBfYf ZnMyMlxwYXJ9 [facility] HCV Ab Path [id number] 11:59:11 Test Item Value Reference Range Interpretation Comments HCV Ab Path There is NO Interp (test serologic evidence code = 8923) of Hepatitis C M AYRIN virus antibody. DARELL HODGES,Dictated by: BJORN HODGES,Dictated Date/Time: 05.19.2021 6:59 AM CDT Transcrib ed Date/Time: 05.19.2021 6:59 AM CDTElectronical ly Signed By: MAYR IN DARELL HODGES, on 05.19.2021 6:59 AM C MD FranciscoHepatitis C Virus [id number] 02:35:42 Test Item Value Reference Range Interpretation Comments HCVAb. (test Non Reactive Non Reactive Antibody detect ion in the code = 5762) immunocompromis ed and immunosuppresse d population may be delayed or absent entirely. There fore serial testing, correl ation with other clinical findings, and supplementa l testing (if available) should be taken into cons ideration when interpreti ng the results.Perform ed at:[facility] [id number] [place], [place] [address] MD FranciscoFree [id number] 16:46:24 Test Item Value Reference Range Interpretation Comments T4 Free (test code = 7502) 1.10 ng/dL 0.93-1.70 MD [id number] 16:46:23 Test Item Value Reference Range Interpretation Comments TSH (test code = 1.25 See_Comment [Automated message] The 5678) system which ge nerated this result transmit eliseo reference range : 0.27 - 4.20 mcunit/mL. The reference range was not used to interpr et this result as rafa l/abnormal. MD FranciscoUS THYROID [id number] 13:46:42 [facility] : 1965 Sex: FCLINICAL INDICATION: E21.3 Hyperparathyroidism, zjemwoaovndU36.2 Nontoxic multinodular goiterTECHNIQUE: Real time and doppler imaging of the thyroid is performed using a high frequency probe on the [employer] .Comparison Study: noneFINDINGS:Right lobe: 6.5 x 2.7 x 1.9 cm.Left lobe: 6.4 x 2.3 x 1.8 cm.Isthmus: 5.4 mm.Comments: Multiple thyroid nodules are demonstrated; 1.8 x 1.6 x 1.4 cm isoechoic with several calcifications right inferior (TR4), 1.1 x 0.8 x 0.4 cm right mid spongiform, 1.8 x 1.2 x 1.0 cm left mid spongiform and additional smaller thyroid nodules are demonstrated.IMPRESSION:Multinodular goiter; mildly suspicious nodule described at the right inferior thyroid. No definite parathyroid nodule identified.PARATHYROID WITH TOMOGRAPHY SPECT / CT [[id number]]2021-05-02 12:50:13 [facility] : 1965 Sex: FCLINICAL INDICATION: E21.3 Hyperparathyroidism, hdfoezbxshkC45.2 Nontoxic multinodular kifzmiG51.539 Pain in unspecified wristMODALITY: Discovery NM/CT 670TECHNIQUE: 20.0 mCi technetium 99m sestamibi are injected IV. Immediate planar, delayed planar and delayed SPECT CT Fusion imaging of the neck were performed. Diagnostic quality CT images are obtained without IV contrast.Computed Tomography Dose Index: 19.38 mGy.FINDINGS:COMPARISON: Current diagnostic quality CT helical images.Note is made of a multinodular thyroid, please refer to ultrasound of same date.Physiologic activity is demonstrated within the thyroid gland. Physiologic activity is noted within regional salivary glands as wellas the heart. No pathologic mediastinal abnormalities are present.On delayed images, homogeneous washout is observed. No parathyroid adenoma is depicted.SPECT imaging demonstrates prominent brown fatlocalization, no visualized parathyroid adenoma is noted.IMPRESSION:No visualized parathyroid adenoma.- CT PELVIS W/O [id number] 00:57:00 [facility] 1965 Sex: F Patient Name: ARLIN CHAIDEZ Unit No: [id number] EXAMS: CPT CODE: [id number] CT PELVIS W/O CONTRAST 63030 CT SCAN PELVIS WITH RECONSTRUCTION DIAGNOSIS: 1. There is a minimally displaced fracture of the mid right inferior pubic ramus. No definitive healing is seen on this examination. Tenuous bridging callus cannot entirely be excluded.] 2. Patient status post total bilateral hip arthroplasty. The prosthesis arein good position. No evidence of periprosthetic fracture or loosening. TECHNIQUE: Volumetric CT data of the pelvis was obtained without use of intravenous contrast. Images were then viewed in the axial, coronal and sagittal planes. CT radiation dose optimization is achieved for this examination by the use of a CT protocol in accordance with ACR practice st andards and adherence to box maker paperboard's recommendations. INDICATION: W/O OCCULT FRACTURE RIGHT RAMUS COMPARISON: None. COMMENT: Findings are asdescribed above. at 0057 Reported and signed by: Delia Murphy MD CC: Niko Mendez MD Technologist: Paul Oliveira,RT(R) CTDI: DLP: Trnscrpt: 03/09/2021 (0057) DavidGVG [facility] NAME:ARLIN CHAIDEZ [address] [facility] PHYS: MATVA.01 - Niko Mendez : 1965 AGE: 55 SEX: F [place], [place] [address] LOC: YRacquelRAD PHONE #: [phone] EXAM DATE: 03/08/2021 STATUS: DEP CLI FAX #: [phone] RAD #: D/C DT PAGE 1 Signed Report Patient Name: ARLIN SOUSA Unit No: [id number] EXAMS: CPT CODE: [id number] CT PELVIS W/O CONTRAST 67498 <Continued> Orig Print D/T: S: 03/09/2021 (0100) [facility] NAME: ARLIN CHAIDEZ FAY [address] [facility] PHYS: MATVA.01 - Katrin Mendezos Dawson : 1965 AGE: 55 SEX: F [place] [address] LOC: Y.RAD PHONE #: [phone] EXAM DATE: 03/08/2021 STATUS: DEP CLI FAX#: [phone] RAD #: D/C DT PAGE 2Signed ReportXR CHEST 2 [id number] 22:42:29 1. No radiographic evidence of acute cardiopulmonary process.2. Osseous changes described above. Consider dedicated spine imaging ifclinically indicated. EXAM: XR CHEST 2 VW COMPARISON: None available HISTORY: polyarthralgia FINDINGS: Lungs: Relatively large lung volumes. No focal opacities or pleuralabnormalities seen. Heart/Mediastinum: The cardiomediastinal silhouette is normal in size. Bones and soft tissues: S-shaped thoracic scoliosis with upper convexity tothe right and lower convexity to the left. Several at this moderate compression deformities are suspected along themid thoracic spine possibly T6-T7 and L1. The posterior elements aredifficult to visualize in this limited evaluation. [facility], Radiant Results Inft User - 01/13/2021 5:43 PM CDTEXAM: XR CHEST 2 VWCOMPARISON: None availableHISTORY: polyarthralgia FINDINGS:Lungs: Relatively large lung volumes. No focal opacities or pleuralabnormalities seen.Heart/Mediastinum: The cardiomediastinal silhouette is normal in size.Bones and soft tissues: S-shaped thoracic scoliosis with upper convexity tothe right and lower convexity to the left.Several at this moderate compression deformities are suspected along themid thoracic spine possibly T6-T7 and L1. The posterior elements aredifficult to visualize in this limited evaluation.IMPRESSION1. No radiographic evidence of acute cardiopulmonary process.2. Osseous changes described above. Consider dedicated spine imaging ifclinically indicated. [facility] SA[facility]ILIAC [facility] 3+ [id number] 19:33:52 XR SACROILIAC JOINTS 3+ VW HISTORY: Female 55 years chronic low back pain bilaterally x 1 year COMPARISON: None FINDINGS: The sacroiliac joints are unremarkable without joint space narrowing,sclerosisor osseous erosions. No acute osseous abnormality of the sacrumis identified.[facility], Radiant Results Inft User - 01/13/2021 2:34 PM CDTXR SACROILIAC JOINTS 3+ VWHISTORY: Female 55 years chronic low backpain bilaterally x 1 year COMPARISON: NoneFINDINGS:The sacroiliac joints are unremarkable without joint space narrowing,sclerosis or osseous erosions. No acute osseous abnormality of the sacrumis identified. [facility] CERVICAL SPINE 3 [id number] 19:06:57 On the lateral view, cervical spine can be visualized to the level of C7. The atlantoaxial intervalis within normal limits.No acute fracture or traumatic malalignment of the cervical spine isidentified. No abnormal prevertebral soft tissue swelling is identified. Mild cervical spine degenerative changes. 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 COMPARISON: None. [facility], Radiant Results Inft User - 01/13/2021 2:08 PM CDTEXAMINATION: XR CERVICAL SPINE 3 VWHISTORY: Pt carries a diagnosis of RAwhichwas later annulled ,cervicalgia,please also evaluate for any dynamic instability TECHNIQUE: AP and lateral and open-mouth views of the cervical spine wereobtained.COMPARISON: None.IMPRESSIONOn the lateral view, cervical spine can be visualized to the level of C7. The atlantoaxial interval is within normal limits.No acute fracture or traumatic malalignment of the cervical spine isidentified. No abnormal prevertebral soft tissue swelling is identified. Mild cervical spine degenerative changes.[facility] LUMBAR SPINE 3 [id number] 19:04:43 There are 5 pmq-neh-cwhrzbz lumbar type vertebrae. ?Levoscoliosis of the thoracolumbar spine. Slightly exaggerated lumbarlordosis.No acute lumbar spine fracture is identified. There are mild lumbar spine degenerative changes with lower lumbar facetarthropathy.Bilateral hip arthroplasties. XR LUMBARSPINE 3 VW HISTORY: bilateral low back pain x 1 year TECHNIQUE: AP, lateral views of the lumbar spine were obtained. COMPARISON: None. [facility], Radiant Results Inft User - 01/13/2021 2:05 PM CDTXR LUMBAR SPINE 3 VWHISTORY: bilateral low back pain x 1 year TECHNIQUE: AP, lateral views of the lumbar spine were obtained.COMPARISON: None.IMPRESSIONThere are 5 uic-els-jmzgkad lumbar type vertebrae. Levoscoliosis of the thoracolumbar spine. Slightly exaggerated lumbarlordosis.No acute lumbar spine fracture is identified. There are mild lumbar spine degenerative changes with lower lumbar facetarthropathy.Bilateral hip arthroplasties.[facility] - XR PELVIS 1/2 [id number] 07:17:00 [facility] 1965 Sex: F Patient Name: ARLIN CHAIDEZ Unit No: [id number] EXAMS: CPT CODE: [id number] XR PELVIS 1/2 VIEWS 64385 IMAGES PROVIDED: 1 FINDINGS: Postoperative changes of bilateral total hip arthroplasty demonstrated without evidence of immediate complication. Noacute fracture. IMPRESSION: Postoperative exam as above. at 0717 Reported and signed by: Benja Venegas M.D. CC: Niko Mendez MD Technologist: PEPE DECKER RT(R) Transcribed D/ (0717) MaicolJ [facility] NAME: ARLIN CHAIDEZ [address] [facility] PHYS: Niko Phoenix : 1965 AGE: 55 SEX: F [place], [place] [address] LOC: Y.306 A PHONE #: [phone] EXAM DATE: 12/07/2020 STATUS: DIS IN FAX #: [phone] RAD #: D/C DT 12/08/2020 PAGE 1 Signed Report Patient Name: ARLIN CHAIDEZ Unit No: [id number] EXAMS: CPT CODE: [id number] XR PELVIS 1/2 VIEWS 39524 <Continued> Orig Print D/T: S: 12/09/2020 (0720) [facility] [address] [facility] PHYS: REGINACarey Alvarezilios Dawson : 1965 AGE: 55 SEX: F [place], [place] [address] LOC: Y.306 A PHONE #: [phone] EXAM DATE: 12/07/2020 STATUS: DIS IN FAX #: [phone] RAD #: D/C DT 12/08/2020 PAGE 2 Signed Report HGB [id number] 06:04:00 Test Item Value Reference Range Interpretation Comments HEMOGLOBIN (test code = HGB) 10.1 g/dL 12-16 L HEMATOCRIT (test code = HCT) 31.2 % 37-47 L SPECIMEN COMMENT: POD #1- XR PELVIS 1/2 [id number] 11:50:[address] : 1965 Sex: F Patient Name: ARLIN CHAIDEZ Unit No: [id number] EXAMS: CPT CODE: [id number] XR PELVIS 1/2 VIEWS 13580 INTRAOPERATIVE LEG LENGTH FILM COMMENT: COMPARISON: No prior exams available. In progress right hip replacement is noted. Electronically Signed by Harish Borrero MD on 1at 1150 Reported and signed by: Harish Borrero MD CC: Niko Mendez MD Technologist: ESTELA SOARES (RT.R) Transcribed D/ (1150) t.ABRILR.JCL [facility] NAME: ARLIN CHAIDEZ [address] PHYS: MATVA.Raymond - Niko Mendez : 1965 AGE: 55 SEX: F [place] [address] LOC: Y.998 11 PHONE #: [phone] EXAM DATE: 12/07/2020 STATUS: ADM IN FAX #: [phone] RAD #: D/C DT PAGE 1 Signed Report Patient Name: ARLIN CHAIDEZ Unit No: [id number] EXAMS: CPT CODE: [id number] XR PELVIS 1/2 VIEWS 53435 <Continued> Orig Print D/T: S: 12/07/2020 (1153) [facility] NAME: ARLIN CHAIDEZ [address] PHYS: MATDANIELA.- Niko Mendez : 1965 AGE: 55 SEX: F [place] [address] LOC: Y.998 11 PHONE #: [phone] EXAM DATE: 12/07/2020 STATUS: ADM IN FAX #: [phone] RAD #: D/C DT PAGE 2 Signed Report- XR PELVIS 1/2 VIEWS 2020-12-07 10:51:00 [facility] : 1965 Sex: F Patient Name: ARLIN CHAIDEZ Unit No: [id number] EXAMS: CPT CODE: [id number] XR PELVIS 1/2 VIEWS 99360 INTRAOPERATIVE LEG LENGTH FILM COMMENT: COMPARISON: No prior exams available. In progress right hip replacement is noted. Electronically Signed by Harish Borrero MD on 1at 1051 Reported and signed by: Harish Borrero MD CC: Niko Mendez MD Technologist: ESTELA SOARES (RT.R) Transcribed D/ (1266) DavidJCL [facility] NAME: ARLIN CHAIDEZ [address] [facility] PHYS: Niko Phoenix : 1965 AGE: 55 SEX: F [place], [place] [address] LOC: Y.998 11 PHONE #: [phone] EXAM DATE: 12/07/2020 STATUS: ADM IN FAX #: [phone] RAD #: D/C DT PAGE 1 Signed Report Patient Name: ARLIN CHAIDEZ Unit No: [id number] EXAMS: CPT CODE: [id number] XR PELVIS 1/2 VIEWS 43934 <Continued> Orig Print D/T: S: 12/07/2020 (1056) [facility] NAME: ARLIN CHAIDEZ [address] [facility] PHYS: Niko Lake : 1965 AGE: 55 SEX: F [place], [place] [address] LOC: Y.998 11 PHONE #: [phone] EXAM DATE: 12/07/2020 STATUS: ADM IN FAX #: [phone] RAD #: D/C DT PAGE 2 Signed ReportNovel Coronavirus 2018 [id number] 09:31:00 Test Item Value Reference Range Interpretation Comments Novel Coronavirus Negative Negative Positive r esults are 2018 Inhouse (test indicativ e of the presence code = COVNONPUI) ofSARS-CoV -2 RNA, clinical correlation wit h patient historyand othe r diagnostic info rmation is necessary to determinepatien t infection status. Positiv e results do not rule out bacterial infection or co -infection with other viru ses. Negative result s do not preclude SARS-C oV-2 infection andsh ould not be used as the brianna e basis for patient managementdecis ions. Negative result s must be combined with otherclinical observations, p atient history, and epidemiological information . Detection of SARS-CoV-2 RNA may be affe cted bysample collec tion methods, storag e conditions, and /or stageof infection. Chantell l RNA mutations, vacc inations, antiviraltherap eutics, antibiotics, chemotherapeuti c orimmunosuppres rebecca drugs have not been e valuated for effectson d etection. Results are for the identification of SARS-CoV-2 RNA usingthe Brumfield M2000 Sy stem under the FDA Emergen cy UseAuthorizatio n. The testing is perf ormed by personneltraine d in the procedures for the Brumfield M2000 molecular diagnostic SARS-CoV-2 assa y in vitro. Novel Coronavirus 2018 [id number] 09:31:00 Test Item Value Reference Range Interpretation Comments Novel Coronavirus Negative Negative Positive r esults are 2018 Inhouse (test indicativ e of the presence code = COVNONPUI) ofSARS-CoV -2 RNA, clinical correlation wit h patient historyand othe r diagnostic info rmation is necessary to determinepatien t infection status. Positiv e results do not rule out bacterial infection or co -infection with other viru ses. Negative result s do not preclude SARS-C oV-2 infection andsh ould not be used as the brianna e basis for patient managementdecis ions. Negative result s must be combined with otherclinical observations, p atient history, and epidemiological information . Detection of SARS-CoV-2 RNA may be affe cted bysample collec tion methods, storag e conditions, and /or stageof infection. Chantell l RNA mutations, vacc inations, antiviraltherap eutics, antibiotics, chemotherapeuti c orimmunosuppres rebecca drugs have not been e valuated for effectson d etection. Results are for the identification of SARS-CoV-2 RNA usingthe [employer] [place] M2000 Sy stem under the FDA Emergen cy UseAuthorizatio n. The testing is perf ormed by personneltraine d in the procedures for the Datical000 molecular diagnostic SARS-CoV-2 assa y in vitro. Novel Coronavirus 2018 [id number] 11:12:00 Test Item Value Reference Range Interpretation Comments Novel Coronavirus Negative Negative Positive r esults are 2019 Inhouse (test indicativ e of the presence code = COVNONPUI) ofSARS-CoV -2 RNA, clinical correlation wit h patient historyand othe r diagnostic info rmation is necessary to determinepatien t infection status. Positiv e results do not rule out bacterial infection or co -infection with other viru ses. Negative result s do not preclude SARS-C oV-2 infection andsh ould not be used as the brianna e basis for patient managementdecis ions. Negative result s must be combined with otherclinical observations, p atient history, and epidemiological information . Detection of SARS-CoV-2 RNA may be affe cted bysample collec tion methods, storag e conditions, and /or stageof infection. Chantell l RNA mutations, vacc inations, antiviraltherap eutics, antibiotics, chemotherapeuti c orimmunosuppres rebecca drugs have not been e valuated for effectson d etection. Results are for the identification of SARS-CoV-2 RNA usingthe Br[employer]field M2000 Sy stem under the FDA Emergen cy UseAuthorizatio n. The testing is perf ormed by personneltraine d in the procedures for the Br[employer]field M2000 molecular diagnostic SARS-CoV-2 assa y in vitro. Novel Coronavirus 2018 [id number] 11:11:00 Test Item Value Reference Range Interpretation Comments Novel Coronavirus Negative Negative Positive r esults are 2019 Inhouse (test indicativ e of the presence code = COVNONPUI) ofSARS-CoV -2 RNA, clinical correlation wit h patient historyand othe r diagnostic info rmation is necessary to determinepatien t infection status. Positiv e results do not rule out bacterial infection or co -infection with other viru ses. Negative result s do not preclude SARS-C oV-2 infection andsh ould not be used as the brianna e basis for patient managementdecis ions. Negative result s must be combined with otherclinical observations, p atient history, and epidemiological information . Detection of SARS-CoV-2 RNA may be affe cted bysample collec tion methods, storag e conditions, and /or stageof infection. Chantell l RNA mutations, vacc inations, antiviraltherap eutics, antibiotics, chemotherapeuti c orimmunosuppres rebecca drugs have not been e valuated for effectson d etection. Results are for the identification of SARS-CoV-2 RNA usingthe Br[employer]field M2000 Sy stem under the FDA Emergen cy UseAuthorizatio n. The testing is perf ormed by personnelsandi d in the procedures for the [employer]field M2000 molecular diagnostic SARS-CoV-2 assa y in vitro. [id number] 07:38:00 Test Item Value Reference Range Interpretation Comments FRUCTOSAMINE (test 225 UNITS: um ol/L code = FRUC) REFERENCE INTER FRANCINE: 0 - 285 Published r eference interval for ap parently health subjects between age 20 and 60 is 20 5 - 285 umol/L and in a poorlycontrolle d diabetic population is 2 28 - 563 umol/L with yandel an of 396 umol/L. --------[facility] [phone]. COMPREHENSIVE METABOLIC [id number] 12:49:00 Test Item Value Reference Range Interpretation Comments SODIUM (test code = 142 mmol/L 136-145 N NA) POTASSIUM (test code = 4.1 mmol/L 3.5-5.1 N K) CHLORIDE (test code = 104.0 mmol/L 98-107 N CL) CARBON DIOXIDE (test 29.4 mmol/L 21-32 N code = CO2) GLUCOSE (test code = 80 mg/dL 70-110 N GLU) BLOOD UREA NITROGEN 15 mg/dL 7-18 N (test code = BUN) GLOMERULAR FILTRATION 101.1 >60 Unit o f measure: RATE (test code = GFR) mL/mi n/1.73 [id number] Range:Healthy Adults >90 mL/min/1.73 m2 For Chronic Kidney Disease: St age II Mild Decrease in GFR 60-90 St age III Moderate Decrease in GFR 30-59 Stage IV Severe Decre ase in GFR 15- 29 Stage V Kidney Failure <15 CREATININE (test code 0.61 mg/dL 0.55-1.30 N = CREAT) TOTAL PROTEIN (test 6.5 g/dL 6.4-8.2 N code = PROT) ALBUMIN (test code = 3.7 g/dL 3.4-5.0 N ALB) GLOBULIN (test code = 2.8 g/dL 2.2-4.2 N GLOB) ALBUMIN/GLOBULIN RATIO 1.3 0.7-2.0 N (test code = A/G) CALCIUM (test code = 9.8 mg/dL 8.2-10.1 N CA) BILIRUBIN TOTAL (test 0.50 mg/dL 0.2-1.00 N code = BILT) SGOT/AST (test code = 18.0 U/L 15-37 N AST) SGPT/ALT (test code = 28.0 U/L 12-78 N Please note new ALT) normal range. ALKALINE PHOSPHATASE 92 U/L 46-116 N TOTAL (test code = ALKP) PROTHROMBIN [id number] 12:43:00 Test Item Value Reference Range Interpretation Comments PROTHROMBIN TIME 11.1 secs 10.1-12.5 N PATIENT (test code = PTP) INTERNATIONAL NORMAL 0.97 <2.0 RECOMME NDED THERAPEUTIC RATIO (test code = RANGE FOR ORAL INR) ANTICOAGULANTTR EATMENT: CONDI TION INRProphylaxis of venous thrombos is in 2.0 - 3.0 high-risk medic al or surgical patientsTreatme nt of venous thrombos is 2.0 - 3.0Prevention o f embolism 2.0 - 3.0Prevention o f recurrent embol ism, or 3.0 - 4. 5 patients with mechanical pros thetic intravascular v arguelles IS PATIENT ON ANTICOAGULANTS ? YLIST ANTICOAGULANT/ANTI PLT MEDICATION : AspirinHas Lab been notified if Patient is on Heparin Drip? NOIS PATIENT ON ANTICOAGULANTS ? NTHROMBOPLASTIN TIME [id number] 12:43:00 Test Item Value Reference Range Interpretation Comments PTT ACTIVATED (test code = APTT) 34.2 secs 24.9-37.0 N IS PATIENT ON ANTICOAGULANTS ? YLIST ANTICOAGULANT/ANTI PLT MEDICATION : AspirinHas Lab been notified if Patient is on Heparin Drip? NOIS PATIENT ON ANTICOAGULANTS ? NCBC W/AUTO [id number] 12:40:00 Test Item Value Reference Range Interpretation Comments WHITE BLOOD CELL (test code = WBC) 4.5 K/mm3 5.8-11.0 L RED BLOOD CELL (test code = RBC) 3.92 M/mm3 4.2-5.4 L HEMOGLOBIN (test code = HGB) 12.7 g/dL 12-16 N HEMATOCRIT (test code = HCT) 39.1 % 37-47 N MEAN CELL VOLUME (test code = MCV) 100 fL 80-98 H MEAN CELL HGB (test code = MCH) 32.4 pg 27-34 N MEAN CELL HGB CONCENTRATION (test 32.5 g/dL 30.8-34.1 N code = MCHC) RED CELL DISTRIBUTION WIDTH (test 12.3 % 11-16 N code = RDW) PLT (test code = PLT) 274 K/mm3 130-400 N MEAN PLATELET VOLUME (test code = 9.8 fL 8.9-12.1 N MPV) NEUTROPHIL % (test code = NT%) 54.1 % 45-70 N LYMPHOCYTE % (test code = LY%) 33.4 % 20-40 N MONOCYTE % (test code = MO%) 8.7 % 3-10 N EOSINOPHIL % (test code = EO%) 2.9 % 1-5 N BASOPHIL % (test code = BA%) 0.7 % 0.0-1.1 N NEUTROPHIL # (test code = NT#) 2.43 K/mm3 2.00-7.50 N LYMPHOCYTE # (test code = LY#) 1.50 K/mm3 1.50-4.00 N MONOCYTE # (test code = MO#) 0.39 K/mm3 0.2-0.8 N EOSINOPHIL # (test code = EO#) 0.13 K/mm3 0.04-0.4 N BASOPHIL # (test code = BA#) 0.03 K/mm3 0.02-0.10 N MANUAL DIFF REQUIRED (test code = NO MANUAL DIFF MDIFF) NUCLEATED RED BLOOD CELL (test 0 % 0-0 N code = NRBC) - XR PELVIS 1/2 [id number] 10:42:00 [facility] 1965 Sex: F Patient Name: ARLIN CHAIDEZ Unit No: [id number] EXAMS: CPT CODE: [id number] XR PELVIS 1/2 VIEWS 73570 AP portable left hip COMMENT: The patient is status post joint replacement which is articulating normally. at 1042 Reported and signed by: Harish Borrero MD CC: Niko Mendez MD Technologist: DORIS ROSARIO. RT(R) Transcribed D/ (1042) t.DARIANA [facility] NAME: ARLIN CHAIDEZ [address] [facility] PHYS: MATVA.01 - Niko Mendez : 1965 AGE: 55 SEX: F [place], [place] [address] LOC: Y.998 1 PHONE #: [phone] EXAM DATE: 10/07/2020 STATUS: ADM IN FAX #: [phone] RAD #: D/C DT PAGE 1 Signed Report Patient Name: ARLIN CHAIDEZ Unit No: [id number] EXAMS: CPT CODE: [id number] XR PELVIS 1/2 VIEWS 32123 <Continued> Orig Print D/T: S: 10/07/2020 (1045) [facility] NAME: ARLIN CHAIDEZ [address] [facility] PHYS: MATVA.01 - Niko Mendez : 1965 AGE: 55 SEX: F [place], [place] [address] LOC: Y.998 1 PHONE #: [phone] EXAM DATE: 10/07/2020 STATUS: ADM IN FAX #: [phone] RAD #: D/C DT PAGE 2 Signed Report- XR PELVIS 1/2 [id number] 09:15:[address] [facility] : 1965 Sex: F Patient Name: ARLIN CHAIDEZ Unit No: [id number] EXAMS: CPT CODE: [id number] XR PELVIS 1/2 VIEWS 11735 INTRAOPERATIVE LEG LENGTH FILM COMMENT: COMPARISON: No prior exams available. In progress left hip replacement is noted. at 0915 Reported and signed by: Harish Borrero MD CC: Niko Mendez MD Technologist: ESTELA SOARES (RT.R) Transcribed D/ (914) JamesL [facility] NAME: ARLIN CHAIDEZ [address] [facility] PHYS: Niko [place] : 1965 AGE: 55 SEX: F [place] [address] LOC: Y.998 1 PHONE #: [phone] EXAM DATE: 10/07/2020 STATUS: ADM IN FAX #: [phone] RAD #: D/C DT PAGE 1 Signed Report Patient Name: ARLIN CHAIDEZ Unit No: [id number] EXAMS: CPT CODE: [id number] XR PELVIS 1/2 VIEWS 11193 <Continued> Orig Print D/T: S: 10/07/2020 (917) [facility] NAME: ARLIN CHAIDEZ K[place] [address] [facility] PHYS: Niko Phoenix : 1965 AGE: 55 SEX: F [place] [address] LOC: Y.998 1 PHONE #: [phone] EXAM DATE: 10/07/2020 STATUS: ADM IN FAX #: [phone] RAD #:D/C DT PAGE 2 Signed ReportNovel Coronavirus 2019 Inhouse 2020-09-30 17:50:00 Test Item Value Reference Range Interpretation Comments Novel Coronavirus Negative Negative Positive r esults are 2019 Inhouse (test indicativ e of the presence code = COVNONPUI) ofSARS-CoV -2 RNA, clinical correlation wit h patient historyand othe r diagnostic info rmation is necessary to determinepatien t infection status. Positiv e results do not rule out bacterial infection or co -infection with other viru ses. Negative result s do not preclude SARS-C oV-2 infection andsh ould not be used as the brianna e basis for patient managementdecis ions. Negative result s must be combined with otherclinical observations, p atient history, and epidemiological information . Detection of SARS-CoV-2 RNA may be affe cted bysample collec tion methods, storag e conditions, and /or stageof infection. Chantell l RNA mutations, vacc inations, antiviraltherap eutics, antibiotics, chemotherapeuti c orimmunosuppres rebecca drugs have not been e valuated for effectson d etection. Results are for the identification of SARS-CoV-2 RNA usingthe [employer]field M2000 Sy stem under the FDA Emergen cy UseAuthorizatio n. The testing is perf ormed by personneltraine d in the procedures for the [employer] M2000 molecular diagnostic SARS-CoV-2 assa y in vitro. Novel Coronavirus 2019 [id number] 17:50:00 Test Item Value Reference Range Interpretation Comments Novel Coronavirus Negative Negative Positive r esults are 2019 Inhouse (test indicativ e of the presence code = COVNONPUI) ofSARS-CoV -2 RNA, clinical correlation wit h patient historyand othe r diagnostic info rmation is necessary to determinepatien t infection status. Positiv e results do not rule out bacterial infection or co -infection with other viru ses. Negative result s do not preclude SARS-C oV-2 infection andsh ould not be used as the brianna e basis for patient managementdecis ions. Negative result s must be combined with otherclinical observations, p atient history, and epidemiological information . Detection of SARS-CoV-2 RNA may be affe cted bysample collec tion methods, storag e conditions, and /or stageof infection. Chantell l RNA mutations, vacc inations, antiviraltherap eutics, antibiotics, chemotherapeuti c orimmunosuppres rebecca drugs have not been e valuated for effectson d etection. Results are for the identification of SARS-CoV-2 RNA usingthe [employer]field M2000 Sy stem under the FDA Emergen cy UseAuthorizatio n. The testing is perf ormed by personneltraine d in the procedures for the Brumfield M2000 molecular diagnostic SARS-CoV-2 assa y in vitro. AB HIV 19:36:00 Test Item Value Reference Range Interpretation Comments AB HIV 1 (test code NONREACTIVE NONREACTIVE DONE AT: [facility] = HIV1AB) [place] [id number] [facility], [place] [id number] by [employer] 4th Gen HIV Ag/Ab C ombo Screen AB HIV 1 19:36:00 Test Item Value Reference Range Interpretation Comments AB HIV 1 2 (test NONREACTIVE NONREACTIVE Done by S [place] Reppleraur code = [id number]) 4th Gen HIV Ag/Ab Combo Screen COMPREHENSIVE METABOLIC [id number] 15:52:00 Test Item Value Reference Range Interpretation Comments SODIUM (test code = 141 mmol/L 136-145 N NA) POTASSIUM (test code = 4.4 mmol/L 3.5-5.1 N K) CHLORIDE (test code = 101.0 mmol/L 98-107 N CL) CARBON DIOXIDE (test 29.9 mmol/L 21-32 N code = CO2) GLUCOSE (test code = 75 mg/dL 70-110 N GLU) BLOOD UREA NITROGEN 15 mg/dL 7-18 N (test code = BUN) GLOMERULAR FILTRATION 107.2 >60 Unit o f measure: RATE (test code = GFR) mL/mi n/1.73 [id number] Range:Healthy Adults >90 mL/min/1.73 m2 For Chronic Kidney Disease: St age II Mild Decrease in GFR 60-90 St age III Moderate Decrease in GFR 30-59 Stage IV Severe Decre ase in GFR 15- 29 Stage V Kidney Failure <15 CREATININE (test code 0.58 mg/dL 0.55-1.30 N = CREAT) TOTAL PROTEIN (test 6.9 g/dL 6.4-8.2 N code = PROT) ALBUMIN (test code = 3.9 g/dL 3.4-5.0 N ALB) GLOBULIN (test code = 3.0 g/dL 2.2-4.2 N GLOB) ALBUMIN/GLOBULIN RATIO 1.3 0.7-2.0 N (test code = A/G) CALCIUM (test code = 10.4 mg/dL 8.2-10.1 H CA) BILIRUBIN TOTAL (test 0.40 mg/dL 0.2-1.00 N code = BILT) SGOT/AST (test code = 15.0 U/L 15-37 N AST) SGPT/ALT (test code = 27.0 U/L 12-78 N Please note new ALT) normal range. ALKALINE PHOSPHATASE 118 U/L 46-116 H TOTAL (test code = ALKP) CBC W/AUTO [id number] 15:45:00 Test Item Value Reference Range Interpretation Comments WHITE BLOOD CELL (test code = WBC) 6.3 K/mm3 5.8-11.0 N RED BLOOD CELL (test code = RBC) 4.02 M/mm3 4.2-5.4 L HEMOGLOBIN (test code = HGB) 12.9 g/dL 12-16 N HEMATOCRIT (test code = HCT) 39.5 % 37-47 N MEAN CELL VOLUME (test code = MCV) 98 fL 80-98 N MEAN CELL HGB (test code = MCH) 32.1 pg 27-34 N MEAN CELL HGB CONCENTRATION (test 32.7 g/dL 30.8-34.1 N code = MCHC) RED CELL DISTRIBUTION WIDTH (test 13.7 % 11-16 N code = RDW) PLT (test code = PLT) 342 K/mm3 130-400 N MEAN PLATELET VOLUME (test code = 10.1 fL 8.9-12.1 N MPV) NEUTROPHIL % (test code = NT%) 61.3 % 45-70 N LYMPHOCYTE % (test code = LY%) 29.6 % 20-40 N MONOCYTE % (test code = MO%) 7.5 % 3-10 N EOSINOPHIL % (test code = EO%) 0.8 % 1-5 L BASOPHIL % (test code = BA%) 0.5 % 0.0-1.1 N NEUTROPHIL # (test code = NT#) 3.84 K/mm3 2.00-7.50 N LYMPHOCYTE # (test code = LY#) 1.85 K/mm3 1.50-4.00 N MONOCYTE # (test code = MO#) 0.47 K/mm3 0.2-0.8 N EOSINOPHIL # (test code = EO#) 0.05 K/mm3 0.04-0.4 N BASOPHIL # (test code = BA#) 0.03 K/mm3 0.02-0.10 N MANUAL DIFF REQUIRED (test code = NO MANUAL DIFF MDIFF) NUCLEATED RED BLOOD CELL (test 0 % 0-0 N code = NRBC) PROTHROMBIN [id number] 15:43:00 Test Item Value Reference Range Interpretation Comments PROTHROMBIN TIME 10.5 secs 10.1-12.5 N PATIENT (test code = PTP) INTERNATIONAL NORMAL 0.92 <2.0 RECOMME NDED THERAPEUTIC RATIO (test code = RANGE FOR ORAL INR) ANTICOAGULANTTR EATMENT: CONDI TION INRProphylaxis of venous thrombos is in 2.0 - 3.0 high-risk medic al or surgical patientsTreatme nt of venous thrombos is 2.0 - 3.0Prevention o f embolism 2.0 - 3.0Prevention o f recurrent embol ism, or 3.0 - 4. 5 patients with mechanical pros thetic intravascular v arguelles IS PATIENT ON ANTICOAGULANTS ? NHas Lab been notified if Patient is on Heparin Drip? NOTHROMBOPLASTIN TIME [id number] 15:43:00 Test Item Value Reference Range Interpretation Comments PTT ACTIVATED (test code = APTT) 33.4 secs 24.9-37.0 N IS PATIENT ON ANTICOAGULANTS ? NHas Lab been notified if Patient is on Heparin Drip? NO- XR FLUORO [id number] 16:05:00 Patient Name: ARLIN CHAIDEZ Unit No: [id number] EXAMS: CPT CODE: [id number] XR FLUORO NDL [id number] Fluoroscopically guided injection of the bilateral hips with steroid and Marcaine COMPARISON: No prior exams available. FINDINGS: Afterinformed consent was obtained a needle was placed in the bilateral hips with fluoroscopic guidance. Its position was confirmed by injecting Isovue 300 and obtaining an AP radiograph. Subse quently 2 mL of Kenalog 40 mg per cc and 4 mL of Marcaine was injected. No immediate complications were encountered. 15 seconds of fluoroscopy time was utilized. IMPRESSION: Technically successful steroid/ Marcaine injection of the bilateral hips at 1605 Reported and signed by:Benja Venegas M.D. CC: Shanita Marcano MD Technologist: RT Mere.(R) Transcribed D/ (1537) Ana Laura [facility] NAME: ARLIN CHAIDEZ [address] [facility] PHYS: GOMMU. - Shanita Marcano : 1965 AGE: 55 SEX: F [place], [place] [address] LOC: NIRMALA PHONE #: [phone] EXAM DATE: 07/14/2020 STATUS: DEP CLI FAX #: [phone] RAD #: D/C DT PAGE 1 Signed Report Patient Name: ARLIN CHAIDEZ Unit No: [id number] EXAMS: CPT CODE: [id number] XR FLUORO NDL [id number] <Continued> Orig Print D/T: S: 07/15/2020 (1609) [facility] NAME: ARLIN CHAIDEZ [address] [facility] PHYS: Shanita Andrade : 1965 AGE: 55 SEX: F [place], [place] [address] LOC: Y.PEGGY PHONE #: [phone] EXAM DATE: 07/14/2020 STATUS: DEP CLI FAX #: [phone] RAD #: D/C DT PAGE 2 Signed Report
--- NOTE | 2021-10-31 15:09 | RAD REPORT ---
EXAM DESCRIPTION: RAD - Chest Pa And Lat (2 Views) - 10/31/2021 2:54 pm CLINICAL HISTORY: COUGH, recent positive COVID test COMPARISON: Portable September 2014 TECHNIQUE: Frontal and lateral views of the chest were obtained. FINDINGS: The lungs are clear of focal abnormality. Interstitial pattern is mildly prominent but not clearly different from comparison. No measurable interstitial edema or infiltrate. Trachea is midlin e. Heart size is normal and central vasculature is within normal limits. No pleural effusion or pn eumothorax seen. No acute bone finding. Thoracolumbar scoliosis not clearly different from 2014. No aortic abnormality. IMPRESSION: No acute cardiopulmonary process. No significant change from comparison study.
--- NOTE | 2021-10-31 15:45 | ER ---
Nurse's Notes [facility] Name: Maria D Purcell Age: 56 yrs Sex: Female : 1965 Arrival Date: 10/31/2021 Time: 12:28 Bed 12 Private MD: Diagnosis: Coronavirus infection, unspecified Presentation: 10/31 13:45 Chief complaint: Patient states: tested covid positive today at Urgent Care; fever over vg1 the weekend. Denies V/D. Cough for x3 days. Stated [facility] urgent care stated O2 was 90%; pt stated called Dr Ocasio to keep him updated and was told to come to ED for a CXR. Coronavirus screen: Vaccine status: Patient reports receiving the 2nd dose of the covid vaccine. Client denies travel out of the [place] in the last 14 days. Client reports previous positive COVID test result. Date of collection: October 31, 2021. Ebola Screen: Patient negative for fever greater than or equal to 101.5 degrees Fahrenheit, and additional compatible Ebola Virus Disease symptoms. Initial Sepsis Screen: Does the patient meet any 2 criteria? No. Patient's initial sepsis screen is negative. Does the patient have a suspected source of infection? No. Patient's initial sepsis screen is negative. Risk Assessment: Do you want to hurt yourself or someone else? Patient reports no desire to harm self or others. Onset of symptoms was October 31, 2021. 13:45 Method Of Arrival: Wheelchair vg1 13:45 Acuity: ANITA 4 vg1 Triage Assessment: 13:50 General: Appears in no apparent distress. comfortable, Behavior is calm, cooperative. vg1 Pain: Denies pain. Respiratory: Airway is patent Respiratory effort is even, unlabored. Historical: - Allergies: 13:48 Sulfa (Sulfonamide Antibiotics); vg1 13:48 Latex, Natural Rubber; vg1 - Home Meds: 13:48 alendronate oral [Active]; vg1 - PMHx: 13:50 Asthma; vg1 - PSHx: 13:50 Hip- Left and Right; vg1 - Immunization history:: Client reports receiving the 2nd dose of the Covid vaccine. - Social history:: Smoking status: Patient denies any tobacco usage or history of. Screenin:42 Abuse screen: Denies threats or abuse. Denies injuries from another. Nutritional ld1 screening: No deficits noted. Tuberculosis screening: No symptoms or risk factors identified. Fall Risk None identified. Assessment: 15:42 General: Appears in no apparent distress. comfortable, Behavior is calm, cooperative, ld1 appropriate for age. Pain: Denies pain. Neuro: Level of Consciousness is awake, alert, obeys commands, Oriented to person, place, time, situation. Cardiovascular: Capillary refill < 3 seconds Patient's skin is warm and dry. Respiratory: Airway is patent Respiratory effort is even, unlabored, Respiratory pattern is regular, symmetrical. GI: Abdomen is flat, non-distended. : No signs and/or symptoms were reported regarding the genitourinary system. EENT: No signs and/or symptoms were reported regarding the EENT system. Derm: No signs and/or symptoms reported regarding the dermatologic system. Musculoskeletal: No signs and/or symptoms reported regarding the musculoskeletal system. 15:43 Reassessment: Patient appears in no apparent distress at this time. Ambulated pt in ER ld1 - SpO2 prior to ambulation was 97% RA - After ambulating SpO2 100%. Pt denies pain, or SOB. Vital Signs: 13:45 BP 119 / 77; Pulse 70; Resp 16; Temp 98.7(O); Pulse Ox 100% ; Weight 67.59 kg; Height 5 vg1 ft. 9 in. (175.26 cm); Pain 0/10; 15:42 Pulse 86; Resp 18; Pulse Ox 98% on R/A; ld1 13:45 Body Mass Index 22.00 (67.59 kg, 175.26 cm) vg1 ED Course: 12:28 Patient arrived in ED. ja2 13:48 Triage completed. vg1 13:50 Arm band placed on. vg1 14:54 Chest Pa And Lat (2 Views) XRAY In Process Unspecified. EDMS 15:25 Leti Mayo FNP-C is PHCP. kb 15:25 Raimundo Francisco MD is Attending Physician. kb 15:42 Patient has correct armband on for positive identification. Placed in gown. Bed in low ld1 position. Call light in reach. Side rails up X2. Pulse ox on. NIBP on. Door closed. Noise minimized. Warm blanket given. 15:42 No provider procedures requiring assistance completed. Patient did not have IV access ld1 during this emergency room visit. 15:50 Zakiya Santacruz, RN is Primary Nurse. ld1 Administered Medications: No medications were administered Outcome: 15:44 Discharge ordered by MD. wan 15:50 Discharged to home ambulatory, with family. ld1 15:50 Condition: stable 15:50 Discharge instructions given to patient, family, Instructed on discharge instructions, follow up and referral plans. Demonstrated understanding of instructions, follow-up care. 15:51 Patient left the ED. ld1 Signatures: Dispatcher [employer] EDMS Leti Mayo, QUILL MACHINE OPERATOR-C QUILL MACHINE OPERATOR-Evy Stone RN RN vg1 Zakiya Santacruz, RN RN ld1 Pastora Quintero Corrections: (The following items were deleted from the chart) 13:53 13:45 Chief complaint: Patient states: tested covid positive today at Urgent Care; vg1 fever over the weekend. Denies V/D. Cough for x3 days. vg1
--- NOTE | 2021-10-31 15:45 | EDPHYS ---
Physician Documentation [facility] Name: Maria D Purcell Age: 56 yrs Sex: Female : 1965 Arrival Date: 10/31/2021 Time: 12:28 Bed 12 Private MD: ED Physician Raimundo Francisco HPI: 10/31 15:34 This 56 yrs old Female presents to ER via Wheelchair with complaints of COVID, LOW O2 kb LEVEL, Dizziness. 15:34 The patient or guardian reports cough, that is intermittent, described as mild, flu kb symptoms, low-grade fever. Onset: The symptoms/episode began/occurred 4 day(s) ago. Severity of symptoms: At their worst the symptoms were mild, moderate, in the emergency department the symptoms are unchanged. Modifying factors: The symptoms are alleviated by nothing, the symptoms are aggravated by nothing. Associated signs and symptoms: Pertinent positives: fever, Pertinent negatives: chest pain, diarrhea, ear ache, nausea, rhinorrhea, sore throat, vomiting. The patient has not experienced similar symptoms in the past. The patient has not recently seen a physician. Pt reports cough, fever, chills, headache since Sunday. Tested positive for COVID at today and was told that her oxygen was 90%. Called her pcp and was told to come to the ER for a CXR.. Historical: - Allergies: 13:48 Sulfa (Sulfonamide Antibiotics); vg1 13:48 Latex, Natural Rubber; vg1 - Home Meds: 13:48 alendronate oral [Active]; vg1 - PMHx: 13:50 Asthma; vg1 - PSHx: 13:50 Hip- Left and Right; vg1 - Immunization history:: Client reports receiving the 2nd dose of the Covid vaccine. - Social history:: Smoking status: Patient denies any tobacco usage or history of. ROS: 15:34 Abdomen/GI: Negative for abdominal pain, nausea, vomiting, diarrhea, and constipation. kb 15:34 Constitutional: Positive for chills, fever, malaise. 15:34 Respiratory: Positive for cough, Negative for dyspnea on exertion, hemoptysis, orthopnea, pleurisy, shortness of breath, sputum production, wheezing. 15:34 Neuro: Positive for headache. 15:34 All other systems are negative. Exam: 15:34 Constitutional: This is a well developed, well nourished patient who is awake, alert, kb and in no acute distress. Head/Face: Normocephalic, atraumatic. ENT: Moist Mucous membranes Cardiovascular: Regular rate and rhythm with a normal S1 and S2. No gallops, murmurs, or rubs. No pulse deficits. Respiratory: Respirations even and unlabored. No increased work of breathing. Talking in full sentences Skin: Warm, dry with normal turgor. Normal color. MS/ Extremity: Pulses equal, no cyanosis. Neurovascular intact. Full, normal range of motion. Neuro: Awake and alert, GCS 15, oriented to person, place, time, and situation. Moves all extremities. Normal gait. Psych: Awake, alert, with orientation to person, place and time. Behavior, mood, and affect are within normal limits. Vital Signs: 13:45 BP 119 / 77; Pulse 70; Resp 16; Temp 98.7(O); Pulse Ox 100% ; Weight 67.59 kg; Height 5 vg1 ft. 9 in. (175.26 cm); Pain 0/10; 15:42 Pulse 86; Resp 18; Pulse Ox 98% on R/A; ld1 13:45 Body Mass Index 22.00 (67.59 kg, 175.26 cm) vg1 MDM: 15:25 Patient medically screened. kb 15:33 Data reviewed: vital signs, nurses notes. Data interpreted: Pulse oximetry: on room air kb is 100 %. Interpretation: normal. Counseling: I had a detailed discussion with the patient and/or guardian regarding: the historical points, exam findings, and any diagnostic results supporting the discharge/admit diagnosis, radiology results, the need for outpatient follow up, a family practitioner, to return to the emergency department if symptoms worsen or persist or if there are any questions or concerns that arise at home. 15:46 ED course: Pt ambulated without assist or distress around nurse's stations. oxygen kb maintained 100%. . 10/31 13:52 Order name: Chest Pa And Lat (2 Views) XRAY; Complete Time: 15:13 vg1 Administered Medications: No medications were administered Disposition: 11/01 07:39 Co-signature as Attending Physician, Raimundo Francisco MD I agree with the assessment and celine plan of care. Disposition Summary: 10/31/21 15:44 Discharge Ordered Location: Home kb Condition: Stable kb Diagnosis - Coronavirus infection, unspecified kb Followup: kb - With: Emergency Department - When: As needed - Reason: Worsening of condition Followup: kb - With: Private Physician - When: 2 - 3 days - Reason: Recheck today's complaints, Continuance of care, Re-evaluation by your physician Discharge Instructions: - Discharge Summary Sheet kb - Viral Respiratory Infection, [id number] kb - COVID-19 kb Forms: - Medication Reconciliation Form kb - Thank You Letter kb - Antibiotic Education kb - Prescription Opioid Use kb Signatures: Dispatcher [employer] EDLeti Ferrera, TECHNICAL PROGRAMS MANAGER-C TECHNICAL PROGRAMS MANAGER-Raimundo Kirby MD MD cha Garcia, Victoria RN RN vg1
[2021-10-31 16:00] VITALS: BP 119/77; TEMP 98.7
[2021-10-31 16:01] VITALS: O2SAT 98
== END 2021-10-31 15:51 | disposition home or self-care (01) ==
LOC: ER 12:22
DX: U07.1 COVID-19 (principal); Z88.2 Allergy status to sulfonamides; Z91.040 Latex allergy status
CPT/HCPCS: 71046; 99283